=== PATIENT | male | born 1940 | race Caucasian/White ===

== ENCOUNTER 2017-02-03 21:18 | Inpatient (IN) | payer OTHER ==
[~2017-02-03] VITALS: Ht 167.6 cm; Wt 77.2 kg
[2017-02-03] MEDS ORDERED: SODIUM CHLORIDE 0.9% 1000ML 1,000 ML IV STA ×2 (21:39→23:43)
[2017-02-03] MEDS ORDERED: ACETAMINOPHEN 500 MG TAB PO STA (21:39)
[2017-02-03] MEDS ORDERED: CICL160A PO (21:54)
[2017-02-03] MEDS ORDERED: TRMCR130WC TOP (21:54)
[2017-02-03] MEDS ORDERED: NORT25CA PO (21:54)
[2017-02-03] MEDS ORDERED: LEVO50TA6 PO (21:54)
[2017-02-03] MEDS ORDERED: VNTHFA/IN INH (21:54)
[2017-02-03] MEDS ORDERED: PRLSR20 PO (21:54)
[2017-02-03 21:55] LABS: BASO % 0.1 %; BASO ABS # 0.02 K/uL (0-0.2); COMPLETE YES; EOS % 0.1 %; HEMATOCRIT 35.5 % (42-52); IG% 0.4 %; LYMPH % 6.8 %; LYMPH ABS # 0.95 K/uL (1.2-3.4); MEAN CORPUSCULAR HEMOGLOBIN 31.8 pg (25-34); MEAN CORPUSCULAR HGB CONC 34.9 g/dl (32-36); MEAN PLATELET VOLUME 8.3 fL (7.4-10.4); MONO % 6.9 %; NEUT % 85.7 %; PLATELET COUNT 290 K/uL (130-400); WHITE BLOOD COUNT 14.06 K/uL (4.8-10.8)
[2017-02-03] MEDS ORDERED: CEFTRIAXONE SOD INJ 1 GM ADDVIAL IV STA (22:04)
[2017-02-03 22:15] LABS: BUN/CREATININE RATIO 16.2 (10-20); CALCIUM 8.5 mg/dl (8.5-10.1); CREATININE 0.92 mg/dl (0.60-1.40); POTASSIUM 3.8 mmol/L (3.5-5.1)
[2017-02-03] MEDS ORDERED: AZITHROMYCIN IV 500 MG in DEXTROSE 5% 250ML 250 ML IV ONE (22:15)
[2017-02-03 22:18] LABS: ALB/GLOB RATIO 0.7 (0.9-2)
--- NOTE | 2017-02-03 22:22 | DIAGNOSTIC IMAGING REPORT ---
CHEST ONE VIEW PORTABLE HISTORY: 76 years-old Male acute shortness of breath COMPARISON: None available TECHNIQUE: Portable upright AP view of the chest FINDINGS: The patient is slightly rotated to the left. Surgical clips are seen within the region of the left hilum. There is complete opacification of left hemithorax with leftward mediastinal shift and left hemidiaphragmatic elevation. The cardiac silhouette is obscured. There is compensatory hyperinflation of the right lung which appears clear without pneumothorax, pleural effusion or focal airspace consolidation. Moderate degenerative changes are seen involving the shoulders and spine. Upper abdominal structures are within normal limits. IMPRESSION: 1. No acute process of the right lung. 2. Surgical clips of the left hilum with complete opacification and volume loss of the left hemithorax suggest prior pneumonectomy. Correlate with surgical history. The above report was generated using voice recognition software. It may contain grammatical, syntax or spelling errors. Electronically signed by: Tung Koenig M.D. 02/03/2017 10:21 PM Dictated Date/Time: 02/03/2017 10:18 PM
--- NOTE | 2017-02-03 22:26 | EMERGENCY ROOM VISIT NOTE ---
History Report prepared by Angel: Prosper Brunson Under the Supervision of: Jody SheltonO. First contact with patient: 21:27 Chief Complaint: SHORTNESS OF BREATH Stated Complaint: SOB History of Present Illness The patient is a 76 year old male who presents to the Emergency Room with complaints of persistent shortness of breath beginning a few days ago. He states "I think I have pneumonia". He also complains of a productive cough and fever. The patient denies any vomiting or diarrhea. He states that he has been eating normally recently. He is a former smoker but quit almost 20 years ago. The patient has a history of lung cancer with a complete left sided lobectomy. Source of History: patient Onset: a few days ago Quality: other (shortness of breath) Timing: other (persistent) Associated Symptoms: + cough, No vomiting, No diarrhea Review of Systems See HPI for pertinent positives and negatives. A total of ten systems were reviewed and were otherwise negative. Past Medical & Surgical Medical Problems: (1) Lung cancer Surgical Problems: (1) S/P lobectomy of lung Family History No pertinent family history stated. Social History Housing Status: other (incarcerated) Occupation Status: other (incarcerated) Current/Historical Medications Scheduled Albuterol Hfa (Ventolin Hfa), 2-4 PUFFS INH Q6H Ciclesonide (Alvesco), 1 PUFF PO BID Levothyroxine Sodium (Levothyroxine Sodium), 50 MCG PO DAILY Nortriptyline (Pamelor), 25 MG PO BID Omeprazole (Prilosec), 20 MG PO BID Scheduled PRN Triamcinolone Acet (Aristocort 0.1%), 1 DOSE TOP BID PRN for PRN Allergies Coded Allergies: No Known Allergies (Unverified , 02/03/17) Physical Exam Vital Signs Date Time Temp Pulse Resp B/P (MAP) Pulse Ox O2 Delivery O2 Flow Rate FiO2 02/03/17 22:01 Nasal Cannula 2.0 02/03/17 22:01 Nasal Cannula 3.0 02/03/17 21:55 Room Air 02/03/17 21:55 39.2 120 24 132/76 95 Nasal Cannula 3.0 02/03/17 21:29 122 Physical Exam GENERAL: Awake, alert, well-appearing, in no distress HENT: Normocephalic, atraumatic. Oropharynx unremarkable. EYES: Normal conjunctiva. Sclera non-icteric. NECK: Supple. No nuchal rigidity. FROM. No JVD. RESPIRATORY: Rhonchi bilaterally. CARDIAC: Tachycardic rate, normal rhythm. Extremities warm and well perfused. Pulses equal. ABDOMEN: Soft, non-distended. No tenderness to palpation. No rebound or guarding. No masses. RECTAL: Deferred. MUSCULOSKELETAL: Chest examination reveals no tenderness. The back is symmetrical on inspection without obvious abnormality. There is no CVA tenderness to palpation. No joint edema. LOWER EXTREMITIES: Calves are equal size bilaterally and non-tender. No edema. No discoloration. NEURO: Normal sensorium. No sensory or motor deficits noted. SKIN: No rash or jaundice noted. Medical Decision & Procedures ER Provider Diagnostic Interpretation: X-ray: Per my interpretation, radiologist review. CHEST ONE VIEW PORTABLE FINDINGS: The patient is slightly rotated to the left. Surgical clips are seen within the region of the left hilum. There is complete opacification of left hemithorax with leftward mediastinal shift and left hemidiaphragmatic elevation. The cardiac silhouette is obscured. There is compensatory hyperinflation of the right lung which appears clear without pneumothorax, pleural effusion or focal airspace consolidation. Moderate degenerative changes are seen involving the shoulders and spine. Upper abdominal structures are within normal limits. IMPRESSION: 1. No acute process of the right lung. 2. Surgical clips of the left hilum with complete opacification and volume loss of the left hemithorax suggest prior pneumonectomy. Correlate with surgical history. The above report was generated using voice recognition software. It may contain grammatical, syntax or spelling errors. Electronically signed by: Tung Koenig M.D. Laboratory Results 02/03/17 21:46 Red Blood Count 3.90, Mean Corpuscular Volume 91.0, Mean Corpuscular Hemoglobin 31.8, Mean Corpuscular Hemoglobin Concent 34.9, Mean Platelet Volume 8.3, Neutrophils (%) (Auto) 85.7, Lymphocytes (%) (Auto) 6.8, Monocytes (%) (Auto) 6.9, Eosinophils (%) (Auto) 0.1, Basophils (%) (Auto) 0.1, Neutrophils # (Auto) 12.04, Lymphocytes # (Auto) 0.95, Monocytes # (Auto) 0.97, Eosinophils # (Auto) 0.02, Basophils # (Auto) 0.02 02/03/17 21:46 Test 02/03/17 21:46 02/03/17 21:50 White Blood Count 14.06 K/uL (4.8-10.8) Red Blood Count 3.90 M/uL (4.7-6.1) Hemoglobin 12.4 g/dL (14.0-18.0) Hematocrit 35.5 % (42-52) Mean Corpuscular Volume 91.0 fL (80-100) Mean Corpuscular Hemoglobin 31.8 pg (25-34) Mean Corpuscular Hemoglobin Concent 34.9 g/dl (32-36) Platelet Count 290 K/uL (130-400) Mean Platelet Volume 8.3 fL (7.4-10.4) Neutrophils (%) (Auto) 85.7 % Lymphocytes (%) (Auto) 6.8 % Monocytes (%) (Auto) 6.9 % Eosinophils (%) (Auto) 0.1 % Basophils (%) (Auto) 0.1 % Neutrophils # (Auto) 12.04 K/uL (1.4-6.5) Lymphocytes # (Auto) 0.95 K/uL (1.2-3.4) Monocytes # (Auto) 0.97 K/uL (0.11-0.59) Eosinophils # (Auto) 0.02 K/uL (0-0.5) Basophils # (Auto) 0.02 K/uL (0-0.2) RDW Standard Deviation 42.6 fL (36.4-46.3) RDW Coefficient of Variation 12.7 % (11.5-14.5) Immature Granulocyte % (Auto) 0.4 % Immature Granulocyte # (Auto) 0.06 K/uL (0.00-0.02) Anion Gap 5.0 mmol/L (3-11) Est Creatinine Clear Calc Drug Dose 67.8 ml/min Estimated GFR () 93.3 Estimated GFR (Non- 80.5 BUN/Creatinine Ratio 16.2 (10-20) Calcium Level 8.5 mg/dl (8.5-10.1) Total Bilirubin 0.5 mg/dl (0.2-1) Aspartate Amino Transf (AST/SGOT) 13 U/L (15-37) Alanine Aminotransferase (ALT/SGPT) 21 U/L (12-78) Alkaline Phosphatase 60 U/L (45-117) Total Protein 8.0 gm/dl (6.4-8.2) Albumin 3.4 gm/dl (3.4-5.0) Globulin 4.6 gm/dl (2.5-4.0) Albumin/Globulin Ratio 0.7 (0.9-2) Bedside Lactic Acid Venous 1.01 mmol/L (0.90-1.70) Laboratory results reviewed by me Medications Administered Medications (Trade) Dose Ordered Sig/Leonardo Route Start Time Stop Time Status Last Admin Dose Admin Sodium Chloride 1,000 ml @ 999 mls/hr Q1H1M STAT IV 02/03/17 21:39 02/03/17 22:39 02/03/17 22:14 999 MLS/HR Acetaminophen (Tylenol Tab) 1,000 mg NOW STAT PO 02/03/17 21:39 02/03/17 21:42 DC 02/03/17 22:14 1,000 MG Ceftriaxone Sodium (Rocephin Inj) 1 gm NOW STAT IV 02/03/17 22:04 02/03/17 22:05 DC 02/03/17 22:14 1 GM ECG Indication: SOB/dyspnea Rate (beats per minute): 124 Rhythm: sinus tachycardia Findings: other (incomplete RBBB. Non-specific ST change. LAD. ) ED Course 2132: The patient was evaluated in room A4B. A complete history and physical exam was performed. 2138: Ordered Tylenol tab 1000 mg PO, Sodium Chloride 1000 ml @ 999 mls/hr IV. 4: Ordered Rocephin Inj 1 gm IV. 5: Ordered Azithromycin 500 mg/Dextrose 255 mL @ 125 mL/hr IV. 2221: Upon reexamination, the patient was resting. I discussed the test results and treatment plan with him. The patient will be evaluated for further management. Patient was given Tylenol, IV Rocephin and IV Zithromax, IV fluids. Patient has a normal lactic acid and elevated white blood cell count and symptoms suggestive of pneumonia. Patient is not in septic shock at 2230. The case is discussed with the hospitalist for admission Medical Decision Differential diagnosis: Etiologies such as infections, reactive airway disease, pneumonia, pneumothorax , COPD, CHF, cardiac ischemia, pulmonary embolism, musculoskeletal, gastrointestinal, as well as others were entertained. Consults Time Called: 2218 Consulting Physician: Dr. Hollins -[facility] [place] Returned Call: 2220 Discussed the patient's case. The patient will be evaluated for further treatment and disposition. Impression Primary Impression: Pneumonia Additional Impression: Hypoxia Scribe Attestation The scribe's documentation has been prepared under my direction and personally reviewed by me in its entirety. I confirm that the note above accurately reflects all work, treatment, procedures, and medical decision making performed by me. Departure Information Dispostion Being Evaluated By Hospitalist Patient Instructions My [facility] Problem Qualifiers
[2017-02-03] MEDS ORDERED: BUDESONIDE/FORMOTEROL FUMARATE 160/4.5 60 PUFFS/INHALER INH ONE (23:56)
[2017-02-03] MEDS ORDERED: ALBUT/IPRATROP 3MG/0.5MG NEB 3 ML VIAL INH STA (23:56)
[2017-02-04] VITALS (8 sets, daily range): BP systolic 129–164; BP diastolic 67–77; PULSE 85–120; TEMP 36.6–37.1; O2SAT 90–97; Ht 167.6 cm; Wt 77.2 kg
[2017-02-04] MEDS ORDERED: ONDANSETRON INJ 2 MG/ML 2 ML VIAL IV PRN
[2017-02-04] MEDS ORDERED: ACETAMINOPHEN 325 MG TAB PO PRN
[2017-02-04] MEDS ORDERED: METHYLPREDNISOLONE IV 60 MG in SYRINGE 0 ML IV STA (00:14)
[2017-02-04] MEDS ORDERED: SODIUM CHLORIDE 0.9% 1000ML 1,000 ML IV STA (00:33)
[2017-02-04 00:58] LABS: INR 0.9 (0.9-1.1); PROTHROMBIN TIME (PATIENT) 10.1 SECONDS (9.0-12.0)
[2017-02-04] MEDS ORDERED: LEVOFLOXACIN / D5W 750 MG in PREMIXED IN D5W 150 ML IV SCH (01:00)
[2017-02-04 02:20] LABS: URINE APPEARANCE CLEAR (CLEAR); URINE BILIRUBIN NEG (NEG); URINE COLOR YELLOW; URINE NITRITE NEG (NEG); URINE PH 7.5 (4.5-7.5); URINE SPECIFIC GRAVITY 1.012 (1.000-1.030); UROBILINOGEN NEG (NEG)
[2017-02-04 02:26] LABS: MANUAL MICROSCOPIC REQUIRED? NO; REVIEW REQ? NO
[2017-02-04] MEDS: SIMETHICONE 80 MG CHEW PO SCH ×2 (05:46→12:22)
[2017-02-04] MEDS ORDERED: LEVOTHYROXINE 50 MCG TAB PO SCH (06:30)
[2017-02-04] MEDS: ALBUT/IPRATROP 3MG/0.5MG NEB 3 ML VIAL INH SCH ×3 (07:11→15:34)
[2017-02-04 07:21] LABS: HEMATOCRIT 32.3 % (42-52); MEAN CELL VOLUME 91.8 fL (80-100); MEAN CORPUSCULAR HEMOGLOBIN 31.3 pg (25-34); MEAN CORPUSCULAR HGB CONC 34.1 g/dl (32-36); MEAN PLATELET VOLUME 8.3 fL (7.4-10.4); PLATELET COUNT 263 K/uL (130-400); RED BLOOD COUNT 3.52 M/uL (4.7-6.1); WHITE BLOOD COUNT 14.35 K/uL (4.8-10.8)
[2017-02-04 07:55] LABS: BUN/CREATININE RATIO 13.7 (10-20); CALCIUM 8.4 mg/dl (8.5-10.1); CREATININE 0.75 mg/dl (0.60-1.40); POTASSIUM 3.9 mmol/L (3.5-5.1)
[2017-02-04] MEDS ORDERED: PANTOprazole SOD 40 MG TAB PO SCH (08:00)
[2017-02-04] MEDS ORDERED: METHYLPREDNISOLONE IV 40 MG in SYRINGE 0 ML IV SCH (08:00)
[2017-02-04] MEDS ORDERED: BUDESONIDE/FORMOTEROL FUMARATE 160/4.5 60 PUFFS/INHALER INH SCH (08:00)
[2017-02-04] MEDS ORDERED: TRIAMCINOLONE ACET 0.1% CR 15 GM TUBE EXT SCH (08:00)
[2017-02-04] MEDS ORDERED: ENOXAPARIN 40 MG/0.4 ML SYR SQ SCH (08:00)
[2017-02-04] MEDS ORDERED: NORTRIPTYLINE HCL 25 MG CAP PO SCH (08:00)
[2017-02-04] MEDS ORDERED: TIOTROPIUM BROMIDE 5 PUFF/90 MCG INH INH SCH (08:00)
[2017-02-04] MEDS ORDERED: LEVO750T23 PO (14:21)
--- NOTE | 2017-02-04 14:23 | Discharge Instructions ---
Discharge Instructions Date of Service Feb 04, 2017. Admission Reason for Admission: Pneumonia, S/P Lobectomy Of Lung, Sepsis Discharge Discharge Diagnosis / Problem: Sepsis, pneumonia Discharge Goals Goal(s): Decrease discomfort, Improve function, Increase independence, Improve disease control, Diagnostic testing, Therapeutic intervention Activity Recommendations Activity Limitations: resume your previous activity Shower/Bathe: no limitations . Instructions / Follow-Up Instructions / Follow-Up Patient to be discharged home Likely having atypical pneumonia Can be discharged back to correctional facility on antibiotic levaquin 750 mg by mouth once daily If worsening fevers, shortness of breath please report back to ER Current Hospital Diet Patient's current hospital diet: Regular Diet Discharge Diet Recommended Diet: Regular Diet Pending Studies Studies pending at discharge: no Medical Emergencies . Who to Call and When: Medical Emergencies: If at any time you feel your situation is an emergency, please call 911 immediately. . Non-Emergent Contact Non-Emergency issues call your: Primary Care Provider Call Non-Emergent contact if: you have a fever, your pain is worsening . . "Provider Documentation" section prepared by Mendoza Coronado. . VTE Core Measure Inpt VTE Proph given/why not?: Enoxaparin (Lovenox)SQ
--- NOTE | 2017-02-04 16:39 | Discharge Summary ---
Discharge Summary Date of Service Feb 04, 2017. Discharge Summary Admission Date: Feb 04, 2017 at 00:06 Discharge Date: Feb 04, 2017 Discharge Disposition: Acute care facility Principal Diagnosis: pneumonia, hx of lung cancer with lobectomy Medication Reconciliation New Medications: Levofloxacin (Levaquin) 750 Mg Tab 1 TAB PO DAILY for 7 Days, #7 TAB Continued Medications: Albuterol Hfa (Ventolin Hfa) 200 Puffs/88226 Mcg Aers 2-4 PUFFS INH Q6H, #1 INHALER Ciclesonide (Alvesco) 160 Mcg/Act Aer 1 PUFF PO BID Levothyroxine Sodium (Levothyroxine Sodium) 50 Mcg Tab 50 MCG PO DAILY, TAB 3 Refills Nortriptyline (Pamelor) 25 Mg Cap 25 MG PO BID, CAP Omeprazole (Prilosec) 20 Mg Capcr 20 MG PO BID, CAP Triamcinolone Acet (Aristocort 0.1%) 90 Appln/30 Gm Cr 1 DOSE TOP BID PRN for PRN Discharge Exam Review of Systems: Constitutional: No fever, No chills, No sweats, No weight loss, No weakness ENT: No hearing loss, No unusual epistaxis, No nasal symptoms, No sore throat Respiratory: + cough, No sputum, No wheezing, No shortness of breath, No dyspnea on exertion, No dyspnea at rest, No hemoptysis Cardiovascular: No chest pain, No orthopnea, No PND Abdomen: No pain, No nausea, No vomiting, No diarrhea Musculoskeletal: No joint pain, No muscle pain, No swelling, No calf pain Genitourinary - Male: No hematuria, No dysuria, No urinary frequency Neurologic: No memory loss, No paralysis, No weakness, No numbness/tingling Psychiatric: No depression symptoms, No anhedonism, No anxiety Endocrine: No fatigue, No excessive thirst Integumentary: No rash, No itch Physical Exam: General Appearance: WD/WN, no apparent distress Eyes: normal inspection, PERRL, EOMI, sclerae normal Neck: supple, no adenopathy, thyroid normal, no JVD Respiratory/Chest: chest non-tender, no respiratory distress, no accessory muscle use, + decreased breath sounds Cardiovascular: no edema, no gallop, no JVD, + tachycardia Abdomen / GI: normal bowel sounds, non tender, soft, no organomegaly Extremities: normal inspection, no calf tenderness, normal capillary refill , no pedal edema Neurologic/Psychiatric: alert, normal mood/affect, normal reflexes, oriented x 3 Skin: normal color, warm/dry, no rash Lymphatic: no adenopathy Hospital Course Pt is a 76 yo male with hx of lung cancer with left lower lobe lobectomy who presented to [facility] with shortness of breath for past 3 days Shortness of breath likely secondary to developing PNA with underlying sepsis Noted fever and leukocytosis on admission Improved with IV Levaquin, Rocephin and Azithromycin CXR did not determine any acute process Pt reports improvement in sx, DC back to correctional facility on levaquin 750 mg PO x 7 days COPD - Cont inhalers Hypothyroidism - Cont synthroid DVT ppx with lovenox Total Time Spent: Greater than 30 minutes This includes examination of the patient, discharge planning, medication reconciliation, and communication with other providers. Discharge Instructions Please refer to the electronic Patient Visit Report (Discharge Instructions) for additional information.
--- NOTE | 2017-02-05 15:34 | History and Physical ---
History & Physical Date & Time of Service: Feb 03, 2017 at 23:58 Chief Complaint: Pneumonia, S/P Lobectomy Of Lung, Sepsis Primary Care Physician: Kenisha VEGA History of Present Illness Source: patient Mr Camacho is a 76 year old male with a history of left lung pneumonectomy who presents with 2 days of increasing shortness of breath and fever for the past day. He was noted to be hypoxic and feverish at the [facility] and so was transferred to the ER. He has not taken antibiotics to date. He denies any chest pain. He has had a productive cough during this time with some wheezing. He denies any previous cardiac issues. Past Medical/Surgical History Medical Problems: (1) Lung cancer Status: Resolved Surgical Problems: (1) S/P lobectomy of lung Status: Chronic Family History Noncontributory Social History Smoking Status: Former Smoker Smokeless Tobacco Use: No Alcohol Use: none Drug Use: none Housing status: other (incarcerated) Occupational Status: other (incarcerated) Immunizations History of Influenza Vaccine: Yes History of Tetanus Vaccine?: Yes History of Pneumococcal: Unknown History of Hepatitis B Vaccine: Unknown Multi-Drug Resistant Organisms History of MDRO: No Allergies Coded Allergies: No Known Allergies (Unverified , 02/03/17) Home Medications Scheduled Albuterol Hfa (Ventolin Hfa), 2-4 PUFFS INH Q6H Ciclesonide (Alvesco), 1 PUFF PO BID Levofloxacin (Levaquin), 1 TAB PO DAILY Levothyroxine Sodium (Levothyroxine Sodium), 50 MCG PO DAILY Nortriptyline (Pamelor), 25 MG PO BID Omeprazole (Prilosec), 20 MG PO BID Scheduled PRN Triamcinolone Acet (Aristocort 0.1%), 1 DOSE TOP BID PRN for PRN Review of Systems Constitutional: + fever, + chills, No weight loss Eyes: No worsening of vision ENT: No hearing loss Respiratory: + cough, + sputum, + wheezing, + shortness of breath Cardiovascular: No chest pain, No orthopnea, No PND, No edema, No claudication , No palpitations Abdomen: No pain, No nausea, No vomiting, No diarrhea, No constipation, No GI bleeding Musculoskeletal: No joint pain, No muscle pain Genitourinary - Male: No hematuria, No dysuria, No urinary frequency Hematologic / Lymphatic: No abnormal bleeding/bruising Integumentary: No rash, No itch Physical Exam Vital Signs Date Time Temp Pulse Resp B/P (MAP) Pulse Ox O2 Delivery O2 Flow Rate FiO2 02/04/17 15:34 120 26 90 Room Air General Appearance: WD/WN, no apparent distress Head: normocephalic, atraumatic Eyes: normal inspection Neck: supple, no adenopathy, no JVD Respiratory/Chest: chest non-tender, no respiratory distress, no accessory muscle use, + crackles (bilaterally R>L) Cardiovascular: regular rate, rhythm, no edema, no murmur, normal peripheral pulses Abdomen/GI: normal bowel sounds, non tender, soft, + distended Back: no CVA tenderness Extremities/Musculoskelatal: no calf tenderness, normal capillary refill, no pedal edema Neurologic/Psych: no motor/sensory deficits, alert, oriented x 3 Skin: normal color, warm/dry, no rash Diagnostics Diagnostic Radiology CHEST ONE VIEW PORTABLE HISTORY: 76 years-old Male acute shortness of breath COMPARISON: None available TECHNIQUE: Portable upright AP view of the chest FINDINGS: The patient is slightly rotated to the left. Surgical clips are seen within the region of the left hilum. There is complete opacification of left hemithorax with leftward mediastinal shift and left hemidiaphragmatic elevation. The cardiac silhouette is obscured. There is compensatory hyperinflation of the right lung which appears clear without pneumothorax, pleural effusion or focal airspace consolidation. Moderate degenerative changes are seen involving the shoulders and spine. Upper abdominal structures are within normal limits. IMPRESSION: 1. No acute process of the right lung. 2. Surgical clips of the left hilum with complete opacification and volume loss of the left hemithorax suggest prior pneumonectomy. Correlate with surgical history. The above report was generated using voice recognition software. It may contain grammatical, syntax or spelling errors. Electronically signed by: Tung Koenig M.D. 02/03/2017 10:21 PM Dictated Date/Time: 02/03/2017 10:18 PM EKG Sinus tachycardia, 124 bpm Left axis deviation Left anterior fascicular block Impression Assessment and Plan 76 year old male with history of lung ca. s/p left pneumonectomy presents with cough and fever Sepsis (temp, elevated WBC and tachycardia) with pneumonia - no consolidation on CXR but may be in early stages - blood cultures pending - treat with IV levaquin - IVF (aim 30ml/hg in first 3 hours) - lactic acid 1.01 COPD with current exacerbation - switch ciclesonide to fluticason INH as per formulary - treat as exacerbation with IV methylprednisone and duonebs given slight wheezing on examination - start spiriva - he previously had this at home. - recommend follow up with lung function testing Hypothyroidism - continue levothyroxine GERD - switch omeprazole to pantoprazole as per hospital formulary Attending Addendum: I have physically seen and examined this patient, have supervised the medical residents activities, and agree with the H&P as noted above with the following exceptions: NONE The patient is awake, alert and oriented 3, normocephalic and atraumatic, lying in bed and in mild acute respiratory distress. HEENT--PERRL, EOMI, mucous membranes and oropharynx dry. Neck--supple, no JVD or bruits, thyroid normal, trachea midline, no adenopathy. Heart--normal S1 and S2, no extra beats, no murmurs, rubs or gallops. Lungs--coarse breath sounds and wheezes bilaterally, mild respiratory distress, no accessory muscle use. Abdomen--normal bowel sounds and soft, nontender and nondistended. Extremities--no cyanosis, clubbing or edema. There are good distal pulses b/l. Dermatologic--normal skin turgor, normal color, warm and dry, no abnormal lymph nodes, no rash. Neurologic--cranial nerves II through XII grossly intact. Rheumatologic--normal range of motion, nontender, muscles and joints. Psychiatric--normal affect. Assessment and Plan: 1. Lung cancer/status post left pneumonectomy/presumptive pneumosepsis-- admitted to medical surgical floor. Start Levaquin 750 mg IV daily. IV fluid rehydration with serial BMP and magnesium levels. Initial Solu-Medrol 125 mg IV, then 60 mg IV every 6 hours. Continue Spiriva. Do nebs every 6 hours while awake and every 2 hours when necessary. 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 Y/N: Yes Risk Level: Moderate Given or contraindicated: Enoxaparin (Lovenox)SQ Additional Copies To Kenisha VEGA Resident Tracking Resident Involvement: Resident Care Provided Care Provided: Adult Hospital Medicine
--- NOTE | 2017-02-06 17:10 | EDITING REQUIRED CODING QUERY ---
CODING QUERY To promote full compliance with coding requirements relating to patient care, provider participation is requested in all cases of clinical coder uncertainty. Please assist us with the question(s) below: Coding Question(s): Dr. Coronado, COPD exacerbation is documented in the H&P, but not the discharge summary. Please clarify if: (X ) COPD exacerbation was present and treated during this admission ( ) COPD exacerbation was ruled out ( ) Other, please explain Physician's Response(s): Thank you for your time, DANISHA Diggs, DIE TROUBLE SHOOTER
== END 2017-02-04 15:45 | DRG 871 ==
LOC: EDBD 21:18 → C.EDA 21:20 → C.4E 02-04 00:06 → ENRESERV 02-04 00:28
PROVIDERS: ADMIT Hospitalist; ATTEND Hospitalist
DX: A41.9 Sepsis, unspecified organism (principal); J18.9 Pneumonia, unspecified organism; J44.0 Chronic obstructive pulmonary disease with (acute) lower respiratory infection; J44.1 Chronic obstructive pulmonary disease with (acute) exacerbation; R09.02 Hypoxemia; E03.9 Hypothyroidism, unspecified; K21.9 Gastro-esophageal reflux disease without esophagitis; Z90.2 Acquired absence of lung [part of]; Z85.118 Personal history of other malignant neoplasm of bronchus and lung; Z87.891 Personal history of nicotine dependence; Z79.51 Long term (current) use of inhaled steroids; Z79.899 Other long term (current) drug therapy

== ENCOUNTER 2019-02-16 22:05 | Inpatient (IN) ==
--- NOTE | 2019-02-16 22:51 | XRay Report ---
XR chest 1V portable CLINICAL HISTORY: 78 years-old Male presenting with Chest Pain. TECHNIQUE: Portable upright AP view of the chest was obtained. COMPARISON: 02/03/2017. FINDINGS: Leftward deviation of the cardiomediastinal silhouette status post left pneumonectomy. Surgical clips project over the left hilum. Complete opacification of the left hemithorax. Hyperinflation of the ri ght lung. Prominent skin folds project over the right mid lung. No focal lung opacity. No pleural eff usion or pneumothorax. Degenerative changes of the thoracic spine. Upper abdomen normal. IMPRESSION: 1. Postsurgical changes of left pneumonectomy, chronic and unchanged. No convincing evidence of acut e cardiopulmonary disease. Electronically signed by: Will Connor M.D. 02/16/2019 10:38 PM
[2019-02-16 22:59] LABS: Basophils # (auto) 0.04 K/uL (0-0.2); Basophils % (auto) 0.6 %; Eosinophils # (auto) 0.05 K/uL (0-0.5); Eosinophils % (auto) 0.7 %; Hematocrit (blood only) 22.1 % (42-52); Hemoglobin 7.2 g/dL (14.0-18.0); Immature Granulocytes % (auto) 2.8 %; Lymphocytes # (auto) 1.56 K/uL (1.2-3.4); Lymphocytes % (auto) 22.1 %; Mean Corpuscular Hgb Conc 32.6 g/dL (32-36); Mean Corpuscular Volume 97.8 fL (80-100); Mean Platelet Volume 8.2 fL (7.4-10.4); Monocytes # (auto) 0.89 K/uL (0.11-0.59); Monocytes % (auto) 12.6 %; Neutrophils # (auto) 4.32 K/uL (1.4-6.5); Neutrophils % (auto) 61.2 %; Nucleated RBC # (auto) 0.03 K/uL (0-0); Nucleated RBC % (auto) 0.4 %; Platelet Count 371 K/uL (130-400); RDW Coefficient of Variation 14.7 % (11.5-14.5); Red Blood Count 2.26 M/uL (4.7-6.1); White Blood Count 7.06 K/uL (4.8-10.8)
[2019-02-16 23:18] LABS: D Dimer 3210 ug/L FEU (0-500)
[2019-02-16 23:25] LABS: RBC Morphology Unremarkable
[2019-02-16 23:38] LABS: Alanine Aminotransferase 20 U/L (12-78); Albumin Globulin Ratio 0.4 (0.9-2); Albumin Level 2.7 gm/dl (3.4-5.0); Alkaline Phosphatase 76 U/L (45-117); BUN Creatinine Ratio 22.6 (10-20); Bilirubin,Total 0.3 mg/dl (0.2-1); Blood Urea Nitrogen 21 mg/dl (7-18); Calcium 8.7 mg/dl (8.5-10.1); Carbon Dioxide 28 mmol/L (21-32); Chloride 101 mmol/L (98-107); Creatinine Clr Calc Pharmacy 58.4 ml/min; Est GFR (African American) 89.6; Est GFR (Non-African American) 77.3; Globulin 6.9 gm/dl (2.5-4.0); Glucose 94 mg/dl (70-99); Sodium 133 mmol/L (136-145); Total Protein 9.6 gm/dl (6.4-8.2); Troponin I < 0.015 ng/ml (0-0.045)
--- NOTE | 2019-02-16 23:43 | Ultrasound Report ---
ULTRASOUND LEFT LOWER EXTREMITY VENOUS CLINICAL HISTORY: Left leg pain. Recent fall. COMPARISON STUDY: No priors. TECHNIQUE: Real-time, grayscale, and color Doppler sonography of the deep veins of the left lower ext remity was performed from the inguinal crease to the calf. Compression and augmentation were utilized . FINDINGS: There is no sonographic evidence of deep venous thrombosis identified in the left lower ext remity. The common femoral, superficial femoral, and popliteal veins are patent and normally compress ible. The greater saphenous vein and the profunda femoris vein at the junction with the common femora l vein are clear. The visualized calf veins are patent. IMPRESSION: There is no sonographic evidence of deep venous thrombosis identified in the left lower e xtremity. Electronically signed by: Robert Santos M.D. 02/16/2019 11:40 PM
[2019-02-17] MEDS ORDERED: OPTIRAY 320 125ml IV PRN (00:33)
--- NOTE | 2019-02-17 00:57 | CT Scan Report ---
CT ANGIOGRAM OF THE CHEST CLINICAL HISTORY: Dyspnea. COMPARISON STUDY: Chest x-ray dated 02/16/2019. TECHNIQUE: Following the IV administration of 94 cc of Optiray 320, CT angiogram of the chest was per formed from the upper abdomen to the thoracic inlet utilizing the pulmonary embolus protocol. Images are reviewed in the axial, sagittal, and coronal planes. 3-D MIPS images are created and assessed. IV contrast was administered without complication. A dose lowering technique was utilized adhering to the principles of ALARA. The examination is degraded by streak artifact from the arms which could not elevated above the chest. CT DOSE: 441.43 mGy.cm FINDINGS: Thyroid: Not visualized. Thoracic aorta: There is atherosclerotic calcification of the thoracic aorta, with is normal in calib er and demonstrates standard 3-vessel arch anatomy. No dissection is seen. Pulmonary vasculature: The pulmonary trunk is normal in caliber. There are no filling defects identif ied in main, lobar, or segmental pulmonary branches to suggest pulmonary embolus. Heart: The heart is enlarged and without pericardial effusion. Lungs and pleural spaces: There is postoperative change consistent with left pneumonectomy. There is compensatory hyperinflation of the right lung and leftward shift of the mediastinum. Advanced emphyse matous changes noted in the right lung. Patchy airspace consolidation is seen at the right lung base. No pleural effusion is identified. Secretions are noted in the distal trachea. A calcified granuloma is noted in the right middle lobe. No concerning pulmonary lesion is seen in the right lung. Mediastinum: As noted above there is leftward shift of mediastinum. No mediastinal adenopathy is seen . Flor: Clear. Axillae: There is no axillary lymphadenopathy. Upper abdomen: Partially visualized upper abdominal viscera is within normal limits. Skeletal structures: The skeletal structures are heterogeneously osteopenic. 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 Lesions are seen throughout the thoracic spine, involving both ribs, both scapulae, right humerus, and the sternum. A large osteolytic lesion is seen in the body o f T3. Tumor extends posteriorly and encroaches upon the anterior aspect of the thecal sac. The lesion Involves the left pedicle and transverse process of T3, and there is a moderate pathologic compressi on deformity of the T3 vertebral body. There is a large osteolytic lesion in the anterior body of T9. There are pathologic fractures of the right lateral 4th, 6th, 7th, 8th, and 9th ribs. There are also pathologic fractures of the left 3rd, 4th, and 8th ribs. IMPRESSION: 1. There is no evidence of pulmonary embolus in the main, lobar, or segmental pulmonary arteries. 2. Cardiomegaly, advanced emphysema, and postoperative change from left pneumonectomy. 3. There is patchy/nodular airspace consolidation at the right lung base. Correlate clinically for ev idence of a mild infectious/inflammatory pneumonitis. 4. 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 5. There are numerous pathological rib fractures seen bilaterally, as well as a pathologic compressio n fracture of T3. 6. There is metastatic soft tissue from the T3 lesion which encroaches upon the thecal sac. 7. Additional findings as above. Electronically signed by: Robert Santos M.D. 02/17/2019 12:54 AM
[2019-02-17] MEDS ORDERED: SODIUM CHLORIDE 0.9% 250 ML IV PRN ×2 (01:13→04:48)
[2019-02-17] MEDS ORDERED: MoRPHine SULFATE 2 MG/ML CARP IV STA (01:13)
--- NOTE | 2019-02-17 01:23 | Emergency Department Note ---
Entered by Micah Cotton acting as a scribe for Cordell Lewis MD History of Present Illness General Chief complaint: Shortness of Breath/Dyspnea Time Seen by Provider: 02/16/19 22:14 Source: patient History of Present Illness Onset (ago): hour(s) (earlier today) Location: chest Pain Consistency: + intermittent Quality: + dull Associated symptoms: + denies other symptoms (vomiting, pain while breathing, trauma to the chest); no cough The patient is a 78 y/o male who presents to the ED w/ CC of intermittent, dull, chest pain beginning earlier today. The patient states he was attempting to tie his shoes earlier when he suddenly became lightheaded and nauseous and developed chest pain. He reports he does not know which happened first, and he was short of breath with his chest pain. The patient notes his chest pain is intermittent and dull, and it does not radiate. He states he fell twice over the past two months. The patient reports the first time he fell about 4 inches but heard a crunch in his right side when he fell. He notes he can still hear this crunch when he moves a certain way in his wheelchair. The patient states he then fell a few weeks later on his left side and now has left groin pain. He reports he had x-rays of the hip that were normal, and he is scheduled to have x-rays of the leg and back on Tuesday. The patient notes he also has a history of lung cancer and had a left upper and lower lobectomy. He states he takes inhalers daily, but he does not normally use oxygen. The patient denies vomiting, pain while breat isaías, trauma to the chest, recent cough, and taking blood thinners. He also denies a history of these symptoms, NH, heart trouble, and kidney issues. Home Medications Home Medications Medication Instructions Recorded Confirmed Type acetaminophen [Tylenol Extra 1,000 mg PO QID PRN 02/16/19 02/16/19 History Strength] albuterol sulfate 2 puff INHALATION TID 02/16/19 02/16/19 History ciclesonide [Alvesco] 1 puff INHALATION BID 02/16/19 02/16/19 History ibuprofen 400 mg PO TID 02/16/19 02/16/19 History levothyroxine 50 mcg PO DAILY 02/16/19 02/16/19 History nortriptyline 25 mg PO BID 02/16/19 02/16/19 History Allergies Allergy/AdvReac Type Severity Reaction Status Date / Time No Known Allergies Allergy Unverified 02/16/19 22:59 Past Med/Surg History Medical History Lung cancer (Resolved) Sepsis (Resolved) Surgical History S/P lobectomy of lung (Chronic) Family History Other Family history non-contributory Social History Feels Safe at Home: Yes Smoking Status: Former smoker Review of Systems See HPI for pertinent positives & negatives. and A total of 10 systems reviewed and were otherwise negative Physical Exam Vital Signs Vital Signs - 24 hr 02/16/19 22:24 02/16/19 22:48 02/16/19 23:48 Temperature 37.0 C Temperature Source Oral Sepsis Recent Fever Within 48 Hours No Sepsis New/Unexplained Change in Mental Status No Sepsis Action Taken by Nursing No Action Required Pulse Rate 102 H Pulse Rate [Right Finger] 97 H Pulse Rhythm Regular Pulse Rhythm [Right Finger] Pulse Strength Normal Pulse Strength [Right Finger] Respiratory Rate 20 18 Respiratory Effort / Characteristics Non-Labored Non-Labored Respiratory Depth Normal Normal Respiratory Pattern Regular Regular Blood Pressure 174/74 H Blood Pressure [Right Arm] 146/89 H Blood Pressure Mean 107 Blood Pressure Mean [Right Arm] 108 Blood Pressure Position Lying Blood Pressure Position [Right Arm] Lying Pulse Oximetry 89 L Oxygen Delivery Method Room Air Nasal Cannula Oxygen Flow Rate 2 2 02/17/19 01:00 Temperature Temperature Source Sepsis Recent Fever Within 48 Hours Sepsis New/Unexplained Change in Mental Status Sepsis Action Taken by Nursing Pulse Rate Pulse Rate [Right Finger] 84 Pulse Rhythm Pulse Rhythm [Right Finger] Regular Pulse Strength Pulse Strength [Right Finger] Normal Respiratory Rate 18 Respiratory Effort / Characteristics Non-Labored Respiratory Depth Normal Respiratory Pattern Regular Blood Pressure Blood Pressure [Right Arm] 151/95 H Blood Pressure Mean Blood Pressure Mean [Right Arm] 113 Blood Pressure Position Blood Pressure Position [Right Arm] Lying Pulse Oximetry 98 Oxygen Delivery Method Nasal Cannula Oxygen Flow Rate 2 General: Chronically-ill appearing older male in no acute distress. Denies current complaints. HEENT: Normal cephalic atraumatic. Pupils are equal round and reactive to light. Extraocular movements are intact. Oropharynx is pink with moist mucous membranes. No swelling of the mouth lips or tongue. Neck: Supple with a midline trachea. No meningeal signs or stiffness, no JVD or bruits. No Stridor. Chest: Lung sounds diminished/absent on the left. Normal on the right. No wheezes or rhonchi. No increased work of breathing. Heart: regular rate and rhythm. Abdomen: Soft nontender, nondistended without rebound guarding or rigidity. Extremities: No cyanosis clubbing or edema. No calf tenderness or asymmetry. Left leg tender especially near the groin. Spine/Back. Tender to palpation on the right posterior ribs. No CVA tenderness Skin: Good turgor without rashes. Neurologic exam: Cranial nerves two through 12 are intact. Motor and sensation are intact and symmetrical throughout. Course 2213: Past medical records reviewed. The patient was evaluated in room B05. A c omplete history and physical exam was performed. 0000: I reevaluated the patient. He is doing well. I ordered a CT. 0014: The patient was found to be anemic. He denies a history of GI bleeding and a current GI bleed. 0113: Upon reevaluation, I discussed findings and results with him. He verbalize d agreement of the treatment plan. 0146: I spoke with Dr. Clay of the [facility] Hospitalist [facility]. The patient will be evaluated for further management and care. Administered Medications Sodium Chloride (Nss) 250 mls @ 15 mls/hr IV .[id number] PRN PRN Reason: For Transfusion Stop: 03/19/19 01:12 Last Admin: 02/17/19 01:19 Dose: 15 mls/hr Documented by: [id number] Ioversol (Optiray 320 125ml) 94 ml IV ONCE PRN PRN Reason: Interaction Checking Stop: 02/21/19 00:32 Last Admin: 02/17/19 00:34 Dose: 94 ml Documented by: [id number] Discontinued Medications Morphine Sulfate (Morphine Sulfate) 2 mg IV NOW STA Stop: 02/17/19 01:14 Last Admin: 02/17/19 01:18 Dose: 2 mg Documented by: [id number] Medical Decision Making Differential Diagnosis Differential diagnosis includes: ACS, arrhythmia, PE/DVT, rib fracture, pneumothorax. Medical Records Attestation: I reviewed the patient's medical records. Home Medications Current Medication List: was personally reviewed by me Laboratory Data Attestation: I reviewed the patient's lab results. Result diagrams: 02/16/19 22:46 02/16/19 22:46 Lab Results 02/16/19 02/16/19 02/16/19 Range/Units 22:46 22:46 22:46 WBC 7.06 (4.8-10.8) K/uL RBC 2.26 L (4.7-6.1) M/uL Hgb 7.2 L (14.0-18.0) g/dL Hct 22.1 L (42-52) % MCV 97.8 (80-100) fL MCH 31.9 (25-34) pg MCHC 32.6 (32-36) g/dL RDW Std Deviation 52.0 H (36.4-46.3) fL RDW Coeff of Megha 14.7 H (11.5-14.5) % Plt Count 371 (130-400) K/uL MPV 8.2 (7.4-10.4) fL Immature Gran % (Auto) 2.8 % Neut % (Auto) 61.2 % Lymph % (Auto) 22.1 % Craven % (Auto) 12.6 % Eos % (Auto) 0.7 % Baso % (Auto) 0.6 % Immature Gran # (Auto) 0.20 H (0.00-0.02) K/uL Neut # (Auto) 4.32 (1.4-6.5) K/uL Lymph # (Auto) 1.56 (1.2-3.4) K/uL Craven # (Auto) 0.89 H (0.11-0.59) K/uL Eos # (Auto) 0.05 (0-0.5) K/uL Baso # (Auto) 0.04 (0-0.2) K/uL Absolute Nucleated RBC 0.03 H (0-0) K/uL Nucleated RBC % (auto) 0.4 % RBC Morphology Unremarkable D-Dimer 3210 H* (0-500) ug/L FEU Sodium 133 L (136-145) mmol/L Potassium (3.5-5.1) mmol/L Chloride 101 (98-107) mmol/L Carbon Dioxide 28 (21-32) mmol/L Anion Gap 4.0 (3-11) BUN 21 H (7-18) mg/dl Creatinine 0.94 (0.6-1.4) mg/dl Est Cr Clr Drug Dosing 58.4 ml/min Est GFR ( Amer) 89.6 Est GFR (Non-Af Amer) 77.3 BUN/Creatinine Ratio 22.6 H (10-20) Glucose 94 (70-99) mg/dl Calcium 8.7 (8.5-10.1) mg/dl Total Bilirubin 0.3 (0.2-1) mg/dl AST (15-37) U/L ALT 20 (12-78) U/L Alkaline Phosphatase 76 (45-117) U/L Troponin I < 0.015 (0-0.045) ng/ml Total Protein 9.6 H (6.4-8.2) gm/dl Albumin 2.7 L (3.4-5.0) gm/dl Globulin 6.9 H (2.5-4.0) gm/dl Albumin/Globulin Ratio 0.4 L (0.9-2) Lipase 63 L (73-393) U/L Crossmatch 02/17/19 Range/Units 01:30 WBC (4.8-10.8) K/uL RBC (4.7-6.1) M/uL Hgb (14.0-18.0) g/dL Hct (42-52) % MCV (80-100) fL MCH (25-34) pg MCHC (32-36) g/dL RDW Std Deviation (36.4-46.3) fL RDW Coeff of Megha (11.5-14.5) % Plt Count (130-400) K/uL MPV (7.4-10.4) fL Immature Gran % (Auto) % Neut % (Auto) % Lymph % (Auto) % Craven % (Auto) % Eos % (Auto) % Baso % (Auto) % Immature Gran # (Auto) (0.00-0.02) K/uL Neut # (Auto) (1.4-6.5) K/uL Lymph # (Auto) (1.2-3.4) K/uL Craven # (Auto) (0.11-0.59) K/uL Eos # (Auto) (0-0.5) K/uL Baso # (Auto) (0-0.2) K/uL Absolute Nucleated RBC (0-0) K/uL Nucleated RBC % (auto) % RBC Morphology D-Dimer (0-500) ug/L FEU Sodium (136-145) mmol/L Potassium (3.5-5.1) mmol/L Chloride (98-107) mmol/L Carbon Dioxide (21-32) mmol/L Anion Gap (3-11) BUN (7-18) mg/dl Creatinine (0.6-1.4) mg/dl Est Cr Clr Drug Dosing ml/min Est GFR ( Amer) Est GFR (Non-Af Amer) BUN/Creatinine Ratio (10-20) Glucose (70-99) mg/dl Calcium (8.5-10.1) mg/dl Total Bilirubin (0.2-1) mg/dl AST (15-37) U/L ALT (12-78) U/L Alkaline Phosphatase (45-117) U/L Troponin I (0-0.045) ng/ml Total Protein (6.4-8.2) gm/dl Albumin (3.4-5.0) gm/dl Globulin (2.5-4.0) gm/dl Albumin/Globulin Ratio (0.9-2) Lipase (73-393) U/L Crossmatch See Detail Imaging Data Radiologist's Impression: Radiology results as stated below per my review and the radiologist's interpretation: XR chest 1V portable CLINICAL HISTORY: 78 years-old Male presenting with Chest Pain. TECHNIQUE: Portable upright AP view of the chest was obtained. COMPARISON: 02/03/2017. FINDINGS: Leftward deviation of the cardiomediastinal silhouette status post left pneumonectomy. Surgical clips project over the left hilum. Complete opacification of the left hemithorax. Hyperinflation of the right lung. Prominent skin folds project over the right mid lung. No focal lung opacity. No pleural effusion or pneumothorax. Degenerative changes of the thoracic spine. Upper abdomen normal. IMPRESSION: 1. Postsurgical changes of left pneumonectomy, chronic and unchanged. No convincing evidence of acute cardiopulmonary disease. Electronically signed by: Will Connor M.D. 02/16/2019 10:38 PM ULTRASOUND LEFT LOWER EXTREMITY VENOUS CLINICAL HISTORY: Left leg pain. Recent fall. COMPARISON STUDY: No priors. TECHNIQUE: Real-time, grayscale, and color Doppler sonography of the deep veins of the left lower extremity was performed from the inguinal crease to the calf. Compression and augmentation were utilized. FINDINGS: There is no sonographic evidence of deep venous thrombosis identified in the left lower extremity. The common femoral, superficial femoral, and popliteal veins are patent and normally compressible. The greater saphenous vein and the profunda femoris vein at the junction with the common femoral vein are clear. The visualized calf veins are patent. IMPRESSION: There is no sonographic evidence of deep venous thrombosis identified in the left lower extremity. Electronically signed by: Robert Santos M.D. 02/16/2019 11:40 PM ECG Data Attestation: I personally reviewed and interpreted this ECG as follows: Indication: SOB/dyspnea Rate (beats per minute): 106 Rhythm: sinus tachycardia Findings: + other (LVH) and + RBBB (incomplete); no acute ischemic change Comparison ECG Date: from (02/03/2017) Change: the following changes noted (LVH now present) Blood Pressure Blood Pressure Findings: Elevated blood pressure Blood Pressure Disposition: Referred to patients primary care provider Head Trauma GCS Score: 15 MDM Narrative This patient comes in as described above. He was placed in room B5. He has had chest pain and shortness of breath. He is feeling better at present he did fall couple weeks ago has had some right-sided rib pain since then. No abdominal pain. No head trauma. He feels better at present. He does have a history of lung cancer with a left pneumonectomy in the past. No recent treatment. He does have a history of COPD and uses inhalers at times. He does not feel that he needs an inhaler at present. He has been having ongoing left hip pain and leg pain. Ultrasound was obtained of his leg and there is no evidence of DVT. EKG does not suggest acute coronary syndrome or significant arrhythmia. Troponin is negative. His hemoglobin is is low at the mid 7 range and he has no history of GI bleed symptoms. I did type and cross him for 2 units for possible transfusion. He has no significant electrolyte or metabolic abnormalities. I did a CAT scan of his chest as his dimer was significant elevated and he has multiple abnormalities suggesting metastatic cancer. His multiple pathologic lesions in the ribs and spine with a bony tumor appearance in T3. He has multiple pathologic fractures of the ribs bilaterally with 5 on the right and 3 on the left. He is no left-sided tenderness at this point. He was given IV morphine for pain. Given his chest pain new diagnosis of likely metastatic cancer. I do think he needs to be admitted for further treatment evaluation and work-up and pain management. I have consulted the [facility] group to see him in the ER. Impression & Plan Chest pain, Multiple fractures of ribs, Metastatic cancer, Pathologic compression fracture of spine, Anemia, S/P lobectomy of lung Discharge Plan Visit Data Chief Complaint: Shortness of Breath/Dyspnea ED Provider: Cordell Lewis Discharge Problem: Chest pain, Multiple fractures of ribs, Metastatic cancer, Pathologic compression fracture of spine, Anemia, S/P lobectomy of lung Patient Disposition: Home - Self-Care Forms Stand Alone Forms: My [facility], Important Visit Information Prescriptions Prescriptions: No Action acetaminophen [Tylenol Extra Strength] 500 mg Tablet 1,000 mg PO QID PRN (Reason: Pain) RF: 0 nortriptyline 25 mg Capsule 25 mg PO BID RF: 0 levothyroxine 50 mcg Tablet 50 mcg PO DAILY RF: 0 ibuprofen 400 mg Tablet 400 mg PO TID RF: 0 albuterol sulfate 90 mcg/actuation Hfa Aerosol Inhaler 2 puff INHALATION TID RF: 0 Alvesco 160 mcg/actuation Hfa Aerosol Inhaler 1 puff INHALATION BID RF: 0 Referrals Referrals: Kenisha VEGA [Primary Care Provider] - The scribe's documentation has been prepared under my direction and personally reviewed by me in its entirety. I confirm that the note above accurately reflects all work, treatment, procedures, and medical decision making performed by me.
[2019-02-17 02:57] LABS: Partial Thromboplastin Ratio 0.9; Partial Thromboplastin Time 23.7 Seconds (21.0-31.0); Prothrombin Time 10.5 Seconds (9.0-12.0)
[2019-02-17] MEDS ORDERED: SODIUM CHLORIDE 0.9% 1000ML 1,000 ML IV SCH (03:27)
[2019-02-17] MEDS ORDERED: ONDANSETRON INJ 2 MG/ML 2 ML VIAL IV PRN (03:27)
[2019-02-17 04:14] LABS: Hemoglobin 6.8 g/dL (14.0-18.0)
--- NOTE | 2019-02-17 05:04 | History & Physical Report ---
Date of Service February 17, 2019 Assessment & Plan (1) Lung cancer: Lung cancer status post left pneumonectomy 20 years ago. Multiple bilateral pathologic rib fractures. Pathologic compression fracture thoracic spine. 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 Consult oncology. Present on Admission?: Yes (2) Anemia: Hemoglobin 7.2 upon admission. Hemoccult stools. No urgency to transfuse at this time, as patient actually has elevated systolic blood pressure. Check serial H&H's Present on Admission?: Yes (3) Pathologic compression fracture of spine: See above Present on Admission?: Yes (4) Pathologic rib fracture: See above Present on Admission?: Yes (5) Metastatic cancer: See above Present on Admission?: Yes (6) S/P lobectomy of lung: See above Present on Admission?: Yes (7) Hypothyroidism (acquired): Continue levothyroxine 50 mcg daily Present on Admission?: Yes History of Present Illness Chief Complaint: Patient presents to the emergency department with primary complaint of worsening shortness of breath and dyspnea on exertion, with the more acute development of dull substernal chest pain that began earlier in the day today prior to arrival Primary Care Provider: GARY Ponce The patient is a 78-year-old male resident of [facility], with a past medical history significant for lung cancer and is status post left pneumonectomy about 20 years ago. Hepresented to the emergency department with complaint of sternal chest discomfort that began earlier in the day. He reports shortness of breath and dyspnea on exertion for several days prior to this. His chest discomfort today, was brought on by leaning forward to tie shoe. He reports that he fell out of his bed a few months ago, and felt some chest discomfort heard a crunch on his right side at that time. He also had a fall a few weeks ago, where he landed on his left side and left groin pain developed. He had a hip x-ray that was reported normal. Allergies Allergy/AdvReac Type Severity Reaction Status Date / Time No Known Allergies Allergy Unverified 02/16/19 22:59 Home Medications Home Medications Medication Instructions Recorded Confirmed Type acetaminophen [Tylenol Extra 1,000 mg PO QID PRN 02/16/19 02/16/19 History Strength] albuterol sulfate 2 puff INHALATION TID 02/16/19 02/16/19 History ciclesonide [Alvesco] 1 puff INHALATION BID 02/16/19 02/16/19 History ibuprofen 400 mg PO TID 02/16/19 02/16/19 History levothyroxine 50 mcg PO DAILY 02/16/19 02/16/19 History nortriptyline 25 mg PO BID 02/16/19 02/16/19 History Past Med/Surg History Medical History Lung cancer (Resolved) Sepsis (Resolved) Surgical History S/P lobectomy of lung (Chronic) Family History Other Family history non-contributory Social History Preferred Language: Lao Communication Ability: Effective [employer] Required: No Beliefs That Will Affect Care: None Current Living Situation: Other Current Living Situation Comment: [facility]er at [facility] Feels Safe at Home: Yes Smoking Status: Never smoker Hx Alcohol Use: No Hx Substance Use: No Review of Systems Review of Systems: The patient denies palpitations, cough, lower extremity swelling, sore throat, fevers, chills, sweats, weight change, nausea, vomiting, diarrhea , constipation, abdominal pain, pelvic pain, blood in urine or stool, dysuria, urinary frequency or urgency, lightheadedness, dizziness, headache, memory loss, loss of consciousness, rash, abnormal bruising or bleeding,or night sweats. The review of systems is otherwise negative other than for that already noted above, and at least 10 systems have been reviewed. Physical Exam Physical Exam: The patient is awake, alert and oriented 3, normocephalic and atraumatic, lying in bed and in no acute distress. HEENT--PERRL, EOMI, mucous membranes and oropharynx dry. Neck--supple. No JVD. No bruits. Thyroid normal, trachea midline, no adenopathy. Heart--normal S1 and S2. No murmurs, rubs or gallops. Lungs--decreased breath sounds throughout, no respiratory distress, no accessory muscle use. Abdomen--normal bowel sounds and soft. Nontender. Nondistended. Extremities--no cyanosis or clubbing. No edema. There are good distal pulses b/l. Dermatologic--normal skin turgor. Pale appearing Neurologic--cranial nerves II through XII grossly intact. Rheumatologic--normal range of motion. Psychiatric--normal affect. Results & Data Vital Signs (Past 12 Hours) Vital Signs Temp Pulse Pulse Resp BP BP Pulse Ox 02/17/19 03:28 98.4 F 83 20 159/75 H 96 02/17/19 03:27 98.6 F 87 19 130/68 94 02/17/19 02:45 90 18 134/86 97 02/17/19 01:00 84 18 151/95 H 98 02/16/19 23:48 97 H 18 146/89 H 02/16/19 22:24 98.6 F 102 H 20 174/74 H 89 L Laboratory Results Laboratory Results WBC 7.06 K/uL (4.8-10.8) 02/16/19 22:46 RBC 2.26 M/uL (4.7-6.1) L 02/16/19 22:46 Hgb 6.8 g/dL (14.0-18.0) L* 02/17/19 03:52 Hct 21.0 % (42-52) L 02/17/19 03:52 MCV 97.8 fL (80-100) 02/16/19 22:46 MCH 31.9 pg (25-34) 02/16/19 22:46 MCHC 32.6 g/dL (32-36) 02/16/19 22:46 RDW Std Deviation 52.0 fL (36.4-46.3) H 02/16/19 22:46 RDW Coeff of Megha 14.7 % (11.5-14.5) H 02/16/19 22:46 Plt Count 371 K/uL (130-400) 02/16/19 22:46 MPV 8.2 fL (7.4-10.4) 02/16/19 22:46 Immature Gran % (Auto) 2.8 % 02/16/19 22:46 Neut % (Auto) 61.2 % 02/16/19 22:46 Lymph % (Auto) 22.1 % 02/16/19 22:46 [place] % (Auto) 12.6 % 02/16/19 22:46 Eos % (Auto) 0.7 % 02/16/19 22:46 Baso % (Auto) 0.6 % 02/16/19 22:46 Immature Gran # (Auto) 0.20 K/uL (0.00-0.02) H 02/16/19 22:46 Neut # (Auto) 4.32 K/uL (1.4-6.5) 02/16/19 22:46 Lymph # (Auto) 1.56 K/uL (1.2-3.4) 02/16/19 22:46 [place] # (Auto) 0.89 K/uL (0.11-0.59) H 02/16/19 22:46 Eos # (Auto) 0.05 K/uL (0-0.5) 02/16/19 22:46 Baso # (Auto) 0.04 K/uL (0-0.2) 02/16/19 22:46 Absolute Nucleated RBC 0.03 K/uL (0-0) H 02/16/19 22:46 Nucleated RBC % (auto) 0.4 % 02/16/19 22:46 RBC Morphology Unremarkable 02/16/19 22:46 PT 10.5 Seconds (9.0-12.0) 02/16/19 22:46 INR 1.0 (0.9-1.1) 02/16/19 22:46 APTT 23.7 Seconds (21.0-31.0) 02/16/19 22:46 PTT Ratio 0.9 02/16/19 22:46 D-Dimer 3210 ug/L FEU (0-500) H* 02/16/19 22:46 Sodium 133 mmol/L (136-145) L 02/16/19 22:46 Potassium mmol/L (3.5-5.1) 02/16/19 22:46 Chloride 101 mmol/L (98-107) 02/16/19 22:46 Carbon Dioxide 28 mmol/L (21-32) 02/16/19 22:46 Anion Gap 4.0 (3-11) 02/16/19 22:46 BUN 21 mg/dl (7-18) H 02/16/19 22:46 Creatinine 0.94 mg/dl (0.6-1.4) 02/16/19 22:46 Est Cr Clr Drug Dosing 58.4 ml/min 02/16/19 22:46 Est GFR ( Amer) 89.6 02/16/19 22:46 Est GFR (Non-Af Amer) 77.3 02/16/19 22:46 BUN/Creatinine Ratio 22.6 (10-20) H 02/16/19 22:46 Glucose 94 mg/dl (70-99) 02/16/19 22:46 Calcium 8.7 mg/dl (8.5-10.1) 02/16/19 22:46 Total Bilirubin 0.3 mg/dl (0.2-1) 02/16/19 22:46 AST U/L (15-37) 02/16/19 22:46 ALT 20 U/L (12-78) 02/16/19 22:46 Alkaline Phosphatase 76 U/L (45-117) 02/16/19 22:46 Troponin I < 0.015 ng/ml (0-0.045) 02/16/19 22:46 Total Protein 9.6 gm/dl (6.4-8.2) H 02/16/19 22:46 Albumin 2.7 gm/dl (3.4-5.0) L 02/16/19 22:46 Globulin 6.9 gm/dl (2.5-4.0) H 02/16/19 22:46 Albumin/Globulin Ratio 0.4 (0.9-2) L 02/16/19 22:46 Lipase 63 U/L (73-393) L 02/16/19 22:46 Blood Type A Positive 02/17/19 01:30 Blood Type Recheck A Positive 02/17/19 02:00 Antibody Screen NEGATIVE 02/17/19 01:30 Crossmatch See Detail 02/17/19 01:30 Diagnostic Findings [facility] [place] [phone] Ultrasound Report Patient: CATHLEEN WALTER [id number] Date: 02/16/19 MR#: [id number]: GARY PONCE Acct ID:[id number]: [address] Date: 1940City Zip: [place] [address] Age: 78Location: ED Sex: M Room/Bed: Att Phy: Diagnosis: SOB Simi Phy: SCI BennerService Date: 02/16/19 Fam Phy: Interpreting Phy: Robert Santos MD Admit Phy: Ordering Phy: Cordell Lewis M.D. cc: ~ ULTRASOUND LEFT LOWER EXTREMITY VENOUS CLINICAL HISTORY: Left leg pain. Recent fall. COMPARISON STUDY: No priors. TECHNIQUE: Real-time, grayscale, and color Doppler sonography of the deep veins of the left lower extremity was performed from the inguinal crease to the calf. Compression and augmentation were utilized. FINDINGS: There is no sonographic evidence of deep venous thrombosis identified in the left lower extremity. The common femoral, superficial femoral, and popliteal veins are patent and normally compressible. The greater saphenous vein and the profunda femoris vein at the junction with the common femoral vein are clear. The visualized calf veins are patent. IMPRESSION: There is no sonographic evidence of deep venous thrombosis identified in the left lower extremity. Electronically signed by: Robert Santos M.D. 02/16/2019 11:40 PM Dictated: 02/16/19 2340 Transcribed: 02/16/19 234 [place], [place] [phone] XRay Report Patient: CATHLEEN WALTER [id number] Date: 02/16/19 MR#: [id number]: GARY PONCE Acct ID:[id number]: [address] Date: 1940[facility] Zip: [place] [address] Age: 78Location: ED Sex: M Room/Bed: Att Phy: Diagnosis: SOB Simi Phy: SCI BennerService Date: 02/16/19 Fam Phy: Interpreting Phy: Will Connor MD Admit Phy: Ordering Phy: Cordell Lewis M.D. cc: ~ XR chest 1V portable CLINICAL HISTORY: 78 years-old Male presenting with Chest Pain. TECHNIQUE: Portable upright AP view of the chest was obtained. COMPARISON: 02/03/2017. FINDINGS: Leftward deviation of the cardiomediastinal silhouette status post left pneumonectomy. Surgical clips project over the left hilum. Complete opacification of the left hemithorax. Hyperinflation of the right lung. Prominent skin folds project over the right mid lung. No focal lung opacity. No pleural effusion or pneumothorax. Degenerative changes of the thoracic spine. Upper abdomen normal. IMPRESSION: 1. Postsurgical changes of left pneumonectomy, chronic and unchanged. No convincing evidence of acute cardiopulmonary disease. Electronically signed by: Will Connor M.D. 02/16/2019 10:38 PM Dictated: 02/16/192235 Transcribed: 02/16/192235 [place], [place] [phone] CT Scan Report Patient: CATHLEEN WALTER [id number] Date: 02/16/19 MR#: [id number]: GARY PONCE Acct ID:[id number]: [address] Date: 1940City Zip: [place] [address] Age: 78Location: ED Sex: M Room/Bed: Att Phy: Diagnosis: SOB Simi Phy: SCI BennerService Date: 02/16/19 Fam Phy: Interpreting Phy: Robert Santos MD Admit Phy: Ordering Phy: Cordell Lewis M.D. cc: ~ CT ANGIOGRAM OF THE CHEST CLINICAL HISTORY: Dyspnea. COMPARISON STUDY: Chest x-ray dated 02/16/2019. TECHNIQUE: Following the IV administration of 94 cc of Optiray 320, CT angiogram of the chest was performed from the upper abdomen to the thoracic inlet utilizing the pulmonary embolus protocol. Images are reviewed in the axial, sagittal, and coronal planes. 3-D MIPS images are created and assessed. IV contrast was administered without complication. A dose lowering technique was utilized adhering to the principles of ALARA. The examination is degraded by streak artifact from the arms which could not elevated above the chest. CT DOSE: 441.43 mGy.cm FINDINGS: Thyroid: Not visualized. Thoracic aorta: There is atherosclerotic calcification of the thoracic aorta, with is normal in caliber and demonstrates standard 3-vessel arch anatomy. No dissection is seen. Pulmonary vasculature: The pulmonary trunk is normal in caliber. There are no filling defects identified in main, lobar, or segmental pulmonary branches to suggest pulmonary embolus. Heart: The heart is enlarged and without pericardial effusion. Lungs and pleural spaces: There is postoperative change consistent with left pneumonectomy. There is compensatory hyperinflation of the right lung and leftward shift of the mediastinum. Advanced emphysematous changes noted in the right lung. Patchy airspace consolidation is seen at the right lung base. No pleural effusion is identified. Secretions are noted in the distal trachea. A calcified granuloma is noted in the right middle lobe. No concerning pulmonary lesion is seen in the right lung. Mediastinum: As noted above there is leftward shift of mediastinum. No mediastinal adenopathy is seen. Flor: Clear. Axillae: There is no axillary lymphadenopathy. Upper abdomen: Partially visualized upper abdominal viscera is within normal limits. Skeletal structures: The skeletal structures are heterogeneously osteopenic. 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 Lesions are seen throughout the thoracic spine, involving both ribs, both scapulae, right humerus, and the sternum. A large osteolytic lesion is seen in the body of T3. Tumor extends posteriorly and encroaches upon the anterior aspect of the thecal sac. The lesion Involves the left pedicle and transverse process of T3, and there is a moderate pathologic compression deformity of the T3 vertebral body. There is a large osteolytic lesion in the anterior body of T9. There are pathologic fractures of the right lateral 4th, 6th, 7th, 8th, and 9th ribs. There are also pathologic fractures of the left 3rd, 4th, and 8th ribs. IMPRESSION: 1. There is no evidence of pulmonary embolus in the main, lobar, or segmental pulmonary arteries. 2. Cardiomegaly, advanced emphysema, and postoperative change from left pneumonectomy. 3. There is patchy/nodular airspace consolidation at the right lung base. Correlate clinically for evidence of a mild infectious/inflammatory pneumonitis. 4. 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 5. There are numerous pathological rib fractures seen bilaterally, as well as a pathologic compression fracture of T3. 6. There is metastatic soft tissue from the T3 lesion which encroaches upon the thecal sac. 7. Additional findings as above. Electronically signed by: Robert Santos M.D. 02/17/2019 12:54 AM Dictated: 02/17/19 0036 Transcribed: 02/17/19 003 Code Status & VTE Plan Code Status DNR/DNI VTE Prophylaxis Plan VTE Prophylaxis will be ordered: Yes PG Care Time/CCT Total # of Minutes Spent Total Time Spent with Patient: Total time spent is greater than 50% in coordination of care (as documented) at patient's floor/unit and/or counseling patient: (1) Pathologic compression fracture of spine Encounter type: initial encounter Qualified Code(s): M48.50XA - Collapsed vertebra, not elsewhere classified, site unspecified, initial encounter for fracture (2) Anemia Anemia type: unspecified type Qualified Code(s): D64.9 - Anemia, unspecified
[2019-02-17] MEDS ORDERED: ACETAMINOPHEN 325 MG TAB ONE (06:06)
[2019-02-17] MEDS: ACETAMINOPHEN 325 MG TAB PO PRN ×3 (06:09→15:24)
[2019-02-17] MEDS: LEVOTHYROXINE SODIUM 50 MCG TABLET PO SCH (06:09)
[2019-02-17] MEDS: NORTRIPTYLINE HCL 25 MG CAP PO SCH ×2 (07:12→21:36)
[2019-02-17] MEDS ORDERED: ALBUT/IPRATROP 3MG/0.5MG NEB 3 ML VIAL NEB PRN (10:47)
[2019-02-17] MEDS: MoRPHine SULFATE 4 MG/ML 1 ML CARP\\VIAL IV PRN ×3 (13:09→21:40)
--- NOTE | 2019-02-17 15:05 | Hospitalist Progress Note ---
Date of Service February 17, 2019 Assessment & Plan (1) Lung cancer: Lung cancer status post left pneumonectomy 20 years ago. Now with multiple bilateral pathologic rib fractures & pathologic compression fracture thoracic spine. 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 - Patient is not sure he wants any further treatment. For now, will not pursue biopsy. He is considering at present, but notes he is a "lifer and has to go out somehow." - Pain control - Consult palliative care - Will discuss with radiology about biopsy if patient elects to pursue treatment - Case discussed with Dr. Triana who is happy to see the patient if he decides to pursue treatment. (2) Anemia: Hemoglobin 7.2 upon admission, then 6.8. No melena or hematochezia to indicate GI bleed. Likely anemia of chronic disease and/or bone marrow perera ppression from his metastatic cancer. - Received 2 units of PRBCs on 02/17. - Trend hgb (given his overall comfort desires, will not aggressively monitor). (3) Pathologic compression fracture of spine: See above (4) Pathologic rib fracture: See above (5) Metastatic cancer: See above (6) S/P lobectomy of lung: See above (7) COPD (chronic obstructive pulmonary disease): Unknown PFTs. - Continue steroid daily inhaler (we do not have Alvesco on formulary) - DuoNebs PRN (8) Hypothyroidism (acquired): No TSH in system. No signs/symptoms of hypo-/hyperthyroidism. - Continue levothyroxine 50 mcg daily (9) Depression: No active SI/HI. - Continue nortriptyline (10) DVT prophylaxis: Lovenox 40mg unless he decides to be fully comfort care Subjective In considerable pain from the various fractures. Not really shortness of breath. Review of Systems Review of Systems: All systems reviewed & are unremarkable except as noted in HPI & below Physical Exam Constitutional: WD/WN, vitals as above Eyes: EOM intact bilaterally; no conjunctival abnormality ENMT: external ear and nose normal, oropharynx normal Neck: trachea midline, no thyromegaly normal visual inspection Respiratory: normal respiratory effort, lungs clear to auscultation no respiratory distress Cardiovascular: RRR, no murmur, no edema Gastrointestinal (Abdomen): Inspection/Auscultation: abdomen normal to inspection; abdomen not distended Musculoskeletal: no cyanosis or clubbing, extremities motor strength 5/5 Skin: no rashes, warm and dry Neurologic: moves all extremities and awake Psychiatric: Orientation: alert, oriented to person and cooperative Results & Data Vital Signs (Past 12 Hours) Vital Signs Temp Pulse Pulse Resp BP BP BP 02/17/19 12:58 37.3 C 97 H 19 130/66 02/17/19 11:31 36.8 C 88 156/61 H 02/17/19 11:30 36.8 C 89 18 158/60 H 02/17/19 10:20 36.8 C 95 H 18 156/90 H 02/17/19 09:45 36.8 C 93 H 20 163/76 H 02/17/19 09:20 36.8 C 91 H 18 162/82 H 02/17/19 09:05 36.9 C 90 20 164/81 H 02/17/19 08:35 36.6 C 86 20 161/80 H 02/17/19 08:21 36.7 C 90 20 161/53 H 02/17/19 08:00 36.8 C 88 20 157/79 H 02/17/19 07:05 36.7 C 90 20 154/77 H 02/17/19 06:11 36.5 C 93 H 18 164/88 H 02/17/19 05:41 36.9 C 88 16 144/78 H 02/17/19 05:26 36.7 C 80 16 148/77 H 02/17/19 05:08 36.7 C 89 14 133/78 02/17/19 03:28 36.9 C 83 20 159/75 H 02/17/19 03:27 37.0 C 87 19 130/68 Pulse Ox 02/17/19 12:58 95 02/17/19 11:31 02/17/19 11:30 96 02/17/19 10:20 93 02/17/19 09:45 98 02/17/19 09:20 100 02/17/19 09:05 95 02/17/19 08:35 94 02/17/19 08:21 97 02/17/19 08:00 96 02/17/19 07:05 94 02/17/19 06:11 97 02/17/19 05:41 95 02/17/19 05:26 96 02/17/19 05:08 95 02/17/19 03:28 96 02/17/19 03:27 94 PG Care Time/CCT Total # of Minutes Spent Total Time Spent with Patient: Total time spent is greater than 50% in coordination of care (as documented) at patient's floor/unit and/or counseling patient: (1) Anemia Anemia type: unspecified type Qualified Code(s): D64.9 - Anemia, unspecified (2) Pathologic compression fracture of spine Encounter type: initial encounter Qualified Code(s): M48.50XA - Collapsed vertebra, not elsewhere classified, site unspecified, initial encounter for fracture
[2019-02-17] MEDS: FLUTICASONE HFA 110MCG INHALER INH SCH (21:43)
[2019-02-17] MEDS ORDERED: OXYCODONE HCL 10 MG TABCR (OXYCONTIN) PO ONE (23:20)
[2019-02-17] MEDS ORDERED: OXYCODONE HCL 20 MG TABCR (OXYCONTIN) ONE (23:42)
[2019-02-18 05:57] LABS: Hematocrit (blood only) 27.5 % (42-52); Hemoglobin 9.1 g/dL (14.0-18.0); Mean Corpuscular Hgb Conc 33.1 g/dL (32-36); Mean Corpuscular Volume 95.5 fL (80-100); Nucleated RBC # (auto) 0.04 K/uL (0-0); Nucleated RBC % (auto) 0.6 %; Platelet Count 272 K/uL (130-400); RDW Coefficient of Variation 15.3 % (11.5-14.5); RDW Standard Deviation 52.6 fL (36.4-46.3); Red Blood Count 2.88 M/uL (4.7-6.1); White Blood Count 7.08 K/uL (4.8-10.8)
[2019-02-18] MEDS: ACETAMINOPHEN 325 MG TAB PO PRN ×2 (06:10→11:14)
[2019-02-18] MEDS: LEVOTHYROXINE SODIUM 50 MCG TABLET PO SCH (06:11)
[2019-02-18] MEDS: NORTRIPTYLINE HCL 25 MG CAP PO SCH ×2 (07:29→20:17)
[2019-02-18] MEDS: FLUTICASONE HFA 110MCG INHALER INH SCH ×2 (07:29→20:17)
[2019-02-18] MEDS: ENOXAPARIN INJ 40 MG/0.4 ML SYR SQ SCH (07:51)
[2019-02-18] MEDS ORDERED: ACETAMINOPHEN 500 MG TAB PO STA (12:39)
--- NOTE | 2019-02-18 12:47 | Hospitalist Progress Note ---
Date of Service February 18, 2019 Assessment & Plan (1) Pneumonia: On 02/19, patient developed fever & tachycardia. CTA chest on 02/17 showed a patchy consolidation in the right lung base. Given his 0/4 SIRS, I felt this might be atelectasis; however, with present vitals changes, will start CAP coverage. No known risk for healthcare-associated pneumonia or aspiration despite location. Can broaden if he clinically worsens. - Ceftriaxone & azithromycin (2) Lung cancer: Lung cancer status post left pneumonectomy 20 years ago. Now with multiple bilateral pathologic rib fractures & pathologic compression fracture thoracic spine. 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 - Patient is not sure he wants any further treatment. For now, will not pursue biopsy. He is considering at present, but notes he is a "lifer and has to go out somehow." - Patient does want to speak with his family about his condition. Unclear how we can manage this given his prisoner-status. - CM consulted - May be able to help us discuss his case with his family. - Pain control - Consult palliative care - Case discussed with Dr. Triana who is happy to see the patient if he decides to pursue treatment. (3) Anemia: Hemoglobin 7.2 upon admission, then 6.8. No melena or hematochezia to indicate GI bleed. Likely anemia of chronic disease and/or bone marrow suppression from his metastatic cancer. - Received 2 units of PRBCs on 02/17. - Hemoglobin up to 9.1 on 02/18. Given his overall comfort desires, will not aggressively monitor or pursue investigation. (4) Pathologic compression fracture of spine: See above (5) Pathologic rib fracture: See above (6) Metastatic cancer: See above (7) S/P lobectomy of lung: See above (8) COPD (chronic obstructive pulmonary disease): Unknown PFTs. - Continue steroid daily inhaler (we do not have Alvesco on formulary) - DuoNebs PRN (9) Hypothyroidism (acquired): No TSH in system. No signs/symptoms of hypo-/hyperthyroidism. - Continue levothyroxine 50 mcg daily (10) Depression: No active SI/HI. - Continue nortriptyline (11) DVT prophylaxis: Lovenox 40mg unless he decides to be fully comfort care Subjective Still with pain in the rib cage and thigh from likely metastatic disease. Still does not want to be treated. Stable shortness of breath. Review of Systems Review of Systems: All systems reviewed & are unremarkable except as noted in HPI & below Physical Exam Constitutional: WD/WN, vitals as above Eyes: EOM intact bilaterally; no conjunctival abnormality ENMT: external ear and nose normal, oropharynx normal Neck: trachea midline, no thyromegaly normal visual inspection Respiratory: normal respiratory effort, lungs clear to auscultation no respiratory distress Cardiovascular: RRR, no murmur, no edema Gastrointestinal (Abdomen): Inspection/Auscultation: abdomen normal to ins pection; abdomen not distended Musculoskeletal: no cyanosis or clubbing, extremities motor strength 5/5 Skin: no rashes, warm and dry Neurologic: moves all extremities and awake Psychiatric: Orientation: alert, oriented to person and cooperative Results & Data Vital Signs (Past 12 Hours) Vital Signs Temp Pulse Resp BP BP Pulse Ox 02/18/19 08:31 37.9 C H 109 H 19 125/57 L 92 02/18/19 04:16 96 H 18 120/68 90 02/18/19 04:03 37.5 C PG Care Time/CCT Total # of Minutes Spent Total Time Spent with Patient: Total time spent is greater than 50% in coordination of care (as documented) at patient's floor/unit and/or counseling patient: (1) Anemia Anemia type: unspecified type Qualified Code(s): D64.9 - Anemia, unspecified (2) Pathologic compression fracture of spine Encounter type: initial encounter Qualified Code(s): M48.50XA - Collapsed vertebra, not elsewhere classified, site unspecified, initial encounter for fracture
[2019-02-18] MEDS: MoRPHine SULFATE 10 MG/ML CARP/VIAL IV PRN ×2 (13:25→20:13)
[2019-02-18] MEDS: cefTRIAXone SODIUM 1,000 MG in DEXTROSE 5% 50 ML IV SCH (13:43)
[2019-02-18] MEDS: AZITHROMYCIN 500 MG in DEXTROSE 5% 250 ML IV SCH (14:16)
[2019-02-19] MEDS: MoRPHine SULFATE 10 MG/ML CARP/VIAL IV PRN ×3 (00:13→14:08)
[2019-02-19] MEDS ORDERED: ACETAMINOPHEN 325 MG TAB PO PRN (03:37)
[2019-02-19] MEDS: ACETAMINOPHEN 65 ML IV PRN ×2 (04:11→16:13)
--- NOTE | 2019-02-19 06:22 | Ultrasound Report ---
US venous doppler LE BI CLINICAL HISTORY: Calf pain with malignancy COMPARISON STUDY: February 16, 2019 FINDINGS: Real-time and color flow Doppler imaging were performed. Flow was seen within the femoral, popliteal and calf veins with no intraluminal thrombus demonstrated. The saphenous vein is patent. IMPRESSION: No evidence of lower extremity DVT. Electronically signed by: Noe Miller M.D. 02/19/2019 6:21 AM
[2019-02-19] MEDS: LEVOTHYROXINE SODIUM 50 MCG TABLET PO SCH (06:26)
[2019-02-19 06:37] LABS: Hematocrit (blood only) 26.6 % (42-52); Hemoglobin 8.7 g/dL (14.0-18.0); Mean Corpuscular Hgb Conc 32.7 g/dL (32-36); Mean Corpuscular Volume 97.4 fL (80-100); Nucleated RBC # (auto) 0.04 K/uL (0-0); Nucleated RBC % (auto) 0.5 %; Platelet Count 267 K/uL (130-400); RDW Coefficient of Variation 15.1 % (11.5-14.5); RDW Standard Deviation 53.6 fL (36.4-46.3); Red Blood Count 2.73 M/uL (4.7-6.1); White Blood Count 7.87 K/uL (4.8-10.8)
[2019-02-19 07:06] LABS: BUN Creatinine Ratio 27.9 (10-20); Creatinine Clr Calc Pharmacy 36.4 ml/min; Est GFR (African American) 50.5; Est GFR (Non-African American) 43.6; Magnesium 2.3 mg/dl (1.8-2.4); Potassium 4.3 mmol/L (3.5-5.1)
[2019-02-19] MEDS: NORTRIPTYLINE HCL 25 MG CAP PO SCH ×2 (08:42→20:36)
[2019-02-19] MEDS: ENOXAPARIN INJ 40 MG/0.4 ML SYR SQ SCH (08:42)
[2019-02-19] MEDS: FLUTICASONE HFA 110MCG INHALER INH SCH ×2 (08:43→20:36)
--- NOTE | 2019-02-19 11:12 | Palliative Care Consultation ---
Date of Consultation February 19, 2019 Assessment & Plan (1) Goals of care, counseling/discussion: -78 year old male patient with PMH COPD, lung cancer s/p pneumonectomy 20 years ago, presented to the hospital with worsening SOB. CT chest showed numerous pathologic rib fractures as well as pathologic compression fracture of T3. Also showed some patchy airspace consolidations that could represent inflammation/infectious process. Patient did spike a fever as high as 39.2, blood cultures were drawn after abx were started. Despite abx coverage, patient has continued to decline from a respiratory and pain standpoint. He is thin, frail, albumin is 2.7. He is requiring IV morphine at 6mg, received four doses in 24 hours. Patient has stated that he does not want further workup for his cancer. Palliative care is consulted to discuss goals of care. -Met with patient this morning in room 251. Two guards present. Patient is lethargic but able to wake up and tell me where he is and about his medical condition. He stated that he just wants to be comfortable and agreed that he did not want to pursue further workup. -Patient states his pain is currently under control with the IV morphine. -Spoke with attending physician who will call residential physician for sign off. Spoke with case management as well. [facility] can accept patient back with IV morphine PRN pain or SOB. Would continue with the 6mg IV as needed, as it is keeping patietn's symptoms under control. -Will add scopolamine patch and Atropine 1% oph soln 4 drops SL Q1h PRN secretions. -Once everything is set up, patient can return to residential on comfort/hospice care. -Of note, abx are continued at this time until blood cultures are resulted. -PPS 20%. Prognosis is likely days at this point. (2) Metastatic cancer: (3) Pathologic compression fracture of spine: Encounter type: initial encounter Qualified Code(s): M48.50XA - Collapsed vertebra, not elsewhere classified, site unspecified, initial encounter for fracture (4) Pathologic rib fracture: (5) COPD (chronic obstructive pulmonary disease): Supervising Physician Co-Signing Physician Notes Patient seen and examined, patient appears comfortable Chart reviewed, collaborated with MISHA Khan PE: Patient awake, appears comfortable on O2 via oxime mask HEENT: EOMI, hearing within normal limits Respirations: Coarse breath sounds bilaterally CV: Tachycardic Abdomen: Not distended Agree with above note, assessment and plan as per MISHA Khan-will continue to follow and assist with transition back to residential on comfort care History of Present Illness Reason for Consultation: Goals of care Requesting Physician: Dr. Enrrique Mack Attending Physician: Chase Douglas History of Present Illness This 78 year old male patient with PMH COPD, lung cancer s/p pneumonectomy 20 years ago, presented to the hospital with worsening SOB. CT chest showed numerous pathologic rib fractures as well as pathologic compression fracture of T3. Also showed some patchy airspace consolidations that could represent inflammation/infectious process. Patient did spike a fever as high as 39.2, blood cultures were drawn after abx were started. Despite abx coverage, patient has continued to decline from a respiratory and pain standpoint. He is thin, frail, albumin is 2.7. He is requiring IV morphine at 6mg, received four doses in 24 hours. Patient has stated that he does not want further workup for his cancer. Palliative care is consulted to discuss goals of care. Thank you kindly for this consult. I will follow as needed. Allergies Allergy/AdvReac Type Severity Reaction Status Date / Time No Known Allergies Allergy Unverified 02/16/19 22:59 Home Medications Home Medications Medication Instructions Recorded Confirmed Type acetaminophen [Tylenol Extra 1,000 mg PO QID PRN 02/16/19 02/16/19 History Strength] albuterol sulfate 2 puff INHALATION TID 02/16/19 02/16/19 History ciclesonide [Alvesco] 1 puff INHALATION BID 02/16/19 02/16/19 History ibuprofen 400 mg PO TID 02/16/19 02/16/19 History levothyroxine 50 mcg PO DAILY 02/16/19 02/16/19 History nortriptyline 25 mg PO BID 02/16/19 02/16/19 History Patient History Medical History Lung cancer (Resolved) Sepsis (Resolved) Surgical History S/P lobectomy of lung (Chronic) Family History Other Family history non-contributory Social History Preferred Language: Serbian Communication Ability: Impaired Carpet Jack Required: No Beliefs That Will Affect Care: None Current Living Situation: Other Current Living Situation Comment: [facility] at [facility] Feels Safe at Home: Yes Smoking Status: Never smoker Hx Alcohol Use: No Hx Substance Use: No Review of Systems Review of Systems: C/o occasional pain in ribs and back. C/o SOB. No N/V or abdominal pain. Physical Exam Constitutional: + ill appearing, + thin and + frail appearing; no acute distress ENMT: Ears: no hearing impairment Respiratory: + labored breathing; no respiratory distress Auscultation: + diminished lung sounds and + rhonchi Cardiovascular: Rate/Rhythm: regular rate and regular rhythm Extremities: no edema Gastrointestinal (Abdomen): Inspection/Auscultation: abdomen normal to inspection and normal bowel sounds Percussion/Palpation: abdomen soft Musculoskeletal: BL toes are cold Neurologic: awake Psychiatric: Orientation: oriented x 3 Results & Data Vital Signs (Past 12 Hours) Vital Signs Temp Pulse Resp BP BP Pulse Ox 02/19/19 07:25 96 H 108/50 L 02/19/19 07:19 36.9 C 92 H 20 88/50 L 97 02/19/19 03:32 39.2 C H 110 H 16 115/63 94 02/18/19 23:20 36.9 C 114 H 18 117/66 92 PG Care Time/CCT Total # of Minutes Spent Total Time Spent with Patient: Total time spent is greater than 50% in coordination of care (as documented) at patient's floor/unit and/or counseling patient: Time Spent Midlevel 70 minutes with >50% of the time spent at bedside with patient, casey saw operator, and attending physician discussing condition and GOC.
[2019-02-19] MEDS: cefTRIAXone SODIUM 1,000 MG in DEXTROSE 5% 50 ML IV SCH (13:58)
[2019-02-19] MEDS: AZITHROMYCIN 500 MG in DEXTROSE 5% 250 ML IV SCH (14:40)
[2019-02-19] MEDS ORDERED: MoRPHine SULFATE 4 MG/ML 1 ML CARP\\VIAL IV PRN (15:14)
[2019-02-19] MEDS ORDERED: ATROPINE SULFATE 1% OP SOLN 2 ML BTL OP PRN (16:24)
[2019-02-19] MEDS ORDERED: SCOPOLAMINE 1.5 MG TDSY TD SCH (17:00)
[2019-02-19 17:01] LABS: Hematocrit (blood only) 25.9 % (42-52); Hemoglobin 8.5 g/dL (14.0-18.0); Mean Corpuscular Hgb Conc 32.8 g/dL (32-36); Mean Corpuscular Volume 98.1 fL (80-100); Mean Platelet Volume 7.8 fL (7.4-10.4); Nucleated RBC # (auto) 0.02 K/uL (0-0); Nucleated RBC % (auto) 0.2 %; Platelet Count 290 K/uL (130-400); RDW Coefficient of Variation 15.1 % (11.5-14.5); RDW Standard Deviation 53.9 fL (36.4-46.3); Red Blood Count 2.64 M/uL (4.7-6.1); White Blood Count 7.82 K/uL (4.8-10.8)
[2019-02-19] MEDS: MoRPHine SULFATE 5 MG/0.25 ML UDP PO PRN ×2 (17:11→20:34)
[2019-02-19] MEDS: ATROPINE SULFATE 1% OP SOLN 2 ML BTL SL PRN ×2 (17:18→20:42)
[2019-02-19 17:21] LABS: Albumin Level 2.3 gm/dl (3.4-5.0); BUN Creatinine Ratio 34.1 (10-20); Calcium 8.6 mg/dl (8.5-10.1); Creatinine Clr Calc Pharmacy 47.4 ml/min; Est GFR (African American) 69.5; Potassium 4.3 mmol/L (3.5-5.1)
[2019-02-19 17:24] LABS: Albumin Globulin Ratio 0.3 (0.9-2); Basophils # (auto) 0.03 K/uL (0-0.2); Basophils % (auto) 0.4 %; Bilirubin,Total 0.2 mg/dl (0.2-1); Globulin 6.6 gm/dl (2.5-4.0); Immature Granulocytes # (auto) 0.41 K/uL (0.00-0.02); Immature Granulocytes % (auto) 5.2 %; Lymphocytes # (auto) 1.12 K/uL (1.2-3.4); Lymphocytes % (auto) 14.3 %; Neutrophils # (auto) 5.56 K/uL (1.4-6.5); Neutrophils % (auto) 71.1 %; Total Protein 8.9 gm/dl (6.4-8.2)
[2019-02-19] MEDS ORDERED: MoRPHine SULFATE 4 MG/ML 1 ML CARP\\VIAL IV STA (21:14)
--- NOTE | 2019-02-19 22:36 | Hospitalist Progress Note ---
Date of Service February 19, 2019 Assessment & Plan (1) Pneumonia: On 02/19, patient developed fever & tachycardia. CTA chest on 02/17 showed a patchy consolidation in the right lung base. Given his 0/4 SIRS, I felt this might be atelectasis; however, with present vitals changes, will start CAP coverage. No known risk for healthcare-associated pneumonia or aspiration despite location. Can broaden if he clinically worsens. - Ceftriaxone & azithromycin Will continue with antibiotics for the meantime. However, it appears his main process going forward is his lung cancer. It is very likely that his lung cancer is causing his fever, given that patient has not repsonded to antibiotics. Patient had discussed that he does not want life prolonging measures. I informed shelter that he will be discharged on hospice and comfort measures, but they will be able to receive him tomorrow. The provider at the hospital stated they would get a hold of the family. Patient is currently receiving morphine for pain. Will cut back on morphine dose as patient is lethargic. Will try to find balance that keeps patient comfortable. Given that patient does not want life prolonging measures, and wants to be comfortable, held off narcan for the moment. Plan ultimately is to discharge on 02/20. Will try to place on oral roxanol. (2) Lung cancer: Lung cancer status post left pneumonectomy 20 years ago. Now with multiple bilateral pathologic rib fractures & pathologic compression fracture thoracic spine. 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 As noted above. Longterm will get in touch with family. - Pain control - Consult palliative care - Case discussed with Dr. Triana who is happy to see the patient if he decides to pursue treatment. (3) Anemia: Hemoglobin 7.2 upon admission, then 6.8. No melena or hematochezia to indicate GI bleed. Likely anemia of chronic disease and/or bone marrow suppression from his metastatic cancer. - Received 2 units of PRBCs on 02/17. Hemoglobin improved after PRBCs. (4) Pathologic compression fracture of spine: See above (5) Pathologic rib fracture: See above (6) Metastatic cancer: See above (7) S/P lobectomy of lung: See above (8) COPD (chronic obstructive pulmonary disease): Unknown PFTs. - Continue steroid daily inhaler (we do not have Alvesco on formulary) - DuoNebs PRN (9) Hypothyroidism (acquired): No TSH in system. No signs/symptoms of hypo-/hyperthyroidism. - Continue levothyroxine 50 mcg daily (10) Depression: No active SI/HI. - Continue nortriptyline (11) DVT prophylaxis: Lovenox 40mg unless he decides to be fully comfort care Spent 65 minutes in management of patient. 14:00 to 14:30 16:00 to 16:20 17:15 to 17:30 Subjective Patient appears to be lethargic. Does not provide significant medical history. Review of Systems Review of Systems: Unobtainable due to cognitive status Physical Exam Physical Exam: Constitutional: lethargic, vitals as above; Eyes: EOM intact bilaterally; no conjunctival abnormality ENMT: external ear and nose normal, oropharynx normal Neck: trachea midline, no thyromegaly normal visual inspection Respiratory: normal respiratory effort, lungs clear to auscultation Cardiovascular: RRR, no murmur, no edema Gastrointestinal (Abdomen): Inspection/Auscultation: abdomen normal to inspection; abdomen not distended Musculoskeletal: no cyanosis or clubbing Skin: no rashes, warm and dry Neurologic: unable to assess, awakens with verbal stimuli but falls asleep Results & Data Vital Signs (Past 12 Hours) Vital Signs Temp Pulse Resp BP BP Pulse Ox 02/19/19 19:08 37.7 C H 100 H 17 93/47 L 98 02/19/19 14:39 39.3 C H 103 H 16 107/57 L 93 02/19/19 11:26 36.9 C 54 L 18 129/83 100 PG Care Time/CCT Total # of Minutes Spent Total Time Spent: 65 Total Time Spent with Patient: Total time spent is greater than 50% in coordination of care (as documented) at patient's floor/unit and/or counseling patient: Prolonged Care Time Prolonged Care Time: Yes Total Prolonged Care Time: 65 (1) Anemia Anemia type: unspecified type Qualified Code(s): D64.9 - Anemia, unspecified (2) Pathologic compression fracture of spine Encounter type: initial encounter Qualified Code(s): M48.50XA - Collapsed vertebra, not elsewhere classified, site unspecified, initial encounter for fracture
[2019-02-20] MEDS: CHECK SCOPOLAMINE PATCH PLACEMENT SCH ×3 (00:09→15:44)
[2019-02-20] MEDS: ACETAMINOPHEN 65 ML IV PRN (00:23)
[2019-02-20] MEDS: ATROPINE SULFATE 1% OP SOLN 2 ML BTL SL PRN (00:30)
[2019-02-20] MEDS: MoRPHine SULFATE 5 MG/0.25 ML UDP PO PRN ×6 (00:54→22:10)
[2019-02-20] MEDS ORDERED: HYDROmorphone INJ 0.5 MG/0.5 ML SYR IV STA (01:09)
[2019-02-20] MEDS ORDERED: HYDROmorphone INJ 0.5 MG/0.5 ML SYR ONE (01:14)
[2019-02-20] MEDS: LEVOTHYROXINE SODIUM 50 MCG TABLET PO SCH (05:42)
[2019-02-20] MEDS: FLUTICASONE HFA 110MCG INHALER INH SCH ×2 (08:26→20:46)
[2019-02-20] MEDS: ENOXAPARIN INJ 40 MG/0.4 ML SYR SQ SCH (08:26)
[2019-02-20] MEDS: NORTRIPTYLINE HCL 25 MG CAP PO SCH ×2 (08:27→20:47)
--- NOTE | 2019-02-20 09:39 | Palliative Care Progress Note ---
Date of Service February 20, 2019 Assessment & Plan (1) Goals of care, counseling/discussion: -Patient is awake but confused and lethargic today. Periods of restlessness. -Requiring frequent doses of IV morphine and PO Roxanol for pain and respiratory symptoms. -Switched patient from oxymask to nasal cannula. The oxymask was starting to rub patients nose and create reddened area. -Patient is still receiving IV abx. These will be discontinued upon discharge to group home. -Continue IV morphine at 4mg IV Q3h PRN. Roxanol is ordered 5mg PO Q1h PRN. -Plan is for patient to discharge to group home on comfort/hospice care today as long as he is stable enough to leave. (2) Metastatic cancer: (3) Pathologic compression fracture of spine: (4) Pathologic rib fracture: (5) COPD (chronic obstructive pulmonary disease): Review of Systems Review of Systems: Unobtainable due to cognitive status Physical Exam Constitutional: + ill appearing, + thin and + frail appearing; no acute distress ENMT: Ears: no hearing impairment Respiratory: + labored breathing; no respiratory distress Auscultation: + diminished lung sounds and + rhonchi Cardiovascular: Rate/Rhythm: regular rate and regular rhythm Extremities: no edema Gastrointestinal (Abdomen): Inspection/Auscultation: abdomen normal to inspection and normal bowel sounds Percussion/Palpation: abdomen soft Skin: + mottling (BL knees) Neurologic: + confused Psychiatric: Orientation: + not oriented x 3 Results & Data Vital Signs (Past 12 Hours) Vital Signs Temp Pulse Resp BP Pulse Ox 02/19/19 23:58 38.8 C H 105 H 20 134/68 98 PG Care Time/CCT Total # of Minutes Spent Total Time Spent with Patient: Total time spent is greater than 50% in c oordination of care (as documented) at patient's floor/unit and/or counseling patient: Time Spent Midlevel 25 minutes with >50% of the time spent at bedside with patient and attending physician discussing comfort and POC. (1) Pathologic compression fracture of spine Encounter type: initial encounter Qualified Code(s): M48.50XA - Collapsed vertebra, not elsewhere classified, site unspecified, initial encounter for fracture
[2019-02-20] MEDS: cefTRIAXone SODIUM 1,000 MG in DEXTROSE 5% 50 ML IV SCH (13:18)
[2019-02-20] MEDS: AZITHROMYCIN 500 MG in DEXTROSE 5% 250 ML IV SCH (13:49)
--- NOTE | 2019-02-20 23:19 | Hospitalist Progress Note ---
Date of Service February 20, 2019 Assessment & Plan (1) Pneumonia: On 02/19, patient developed fever & tachycardia. CTA chest on 02/17 showed a patchy consolidation in the right lung base. Given his 0/4 SIRS, I felt this might be atelectasis; however, with present vitals changes, will start CAP coverage. No known risk for healthcare-associated pneumonia or aspiration despite location. Can broaden if he clinically worsens. - Ceftriaxone & azithromycin Will continue with antibiotics for the meantime. However, it appears his main process going forward is his lung cancer. It is very likely that his lung cancer is causing his fever, given that patient has not repsonded to antibiotics. Patient had discussed that he does not want life prolonging measures. I informed [facility] that he will be discharged on hospice and comfort measures, but they will be able to receive him tomorrow. The provider at the hospital stated they would get a hold of the family. Patient is currently receiving morphine for pain. Will cut back on morphine dose as patient is lethargic. Will try to find balance that keeps patient comfortable. Given that patient does not want life prolonging measures, and wants to be comfortable, held off narcan for the moment. Plan ultimately is to discharge on 02/21 as facility is trying to obtain pain medicine. Patient tolerating roxanol. (2) Lung cancer: Lung cancer status post left pneumonectomy 20 years ago. Now with multiple bilateral pathologic rib fractures & pathologic compression fracture thoracic spine. 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 As noted above. [facility] will get in touch with family. - Pain control - Consult palliative care - Case discussed with Dr. Triana who is happy to see the patient if he decides to pursue treatment. (3) Anemia: Hemoglobin 7.2 upon admission, then 6.8. No melena or hematochezia to indicate GI bleed. Likely anemia of chronic disease and/or bone marrow suppression from his metastatic cancer. - Received 2 units of PRBCs on 02/17. Hemoglobin improved after PRBCs. (4) Pathologic compression fracture of spine: See above (5) Pathologic rib fracture: See above (6) Metastatic cancer: See above (7) S/P lobectomy of lung: See above (8) COPD (chronic obstructive pulmonary disease): Unknown PFTs. - Continue steroid daily inhaler (we do not have Alvesco on formulary) - DuoNebs PRN (9) Hypothyroidism (acquired): No TSH in system. No signs/symptoms of hypo-/hyperthyroidism. - Continue levothyroxine 50 mcg daily (10) Depression: No active SI/HI. - Continue nortriptyline (11) DVT prophylaxis: Lovenox 40mg unless he decides to be fully comfort care Spent 35 minutes in management of patient. informed [facility], discussed with case management Subjective Patient is lethargic. Does not provide significant history. Review of Systems Review of Systems: Unobtainable due to reduced consciousness Physical Exam Physical Exam: Constitutional: lethargic, vitals as above; Eyes: EOM intact bilaterally; no conjunctival abnormality ENMT: external ear and nose normal, oropharynx normal Neck: trachea midline, no thyromegaly normal visual inspection Respiratory: normal respiratory effort, lungs clear to auscultation Cardiovascular: RRR, no murmur, no edema Gastrointestinal (Abdomen): Inspection/Auscultation: abdomen normal to inspection; abdomen not distended Musculoskeletal: no cyanosis or clubbing Skin: no rashes, warm and dry Neurologic: unable to assess, awakens with verbal stimuli but falls asleep PG Care Time/CCT Total # of Minutes Spent Total Time Spent with Patient: Total time spent is greater than 50% in coordination of care (as documented) at patient's floor/unit and/or counseling patient: (1) Anemia Anemia type: unspecified type Qualified Code(s): D64.9 - Anemia, unspecified (2) Pathologic compression fracture of spine Encounter type: initial encounter Qualified Code(s): M48.50XA - Collapsed vertebra, not elsewhere classified, site unspecified, initial encounter for fracture
[2019-02-21] MEDS: CHECK SCOPOLAMINE PATCH PLACEMENT SCH ×2 (00:01→08:36)
[2019-02-21] MEDS: LEVOTHYROXINE SODIUM 50 MCG TABLET PO SCH (05:53)
[2019-02-21] MEDS: FLUTICASONE HFA 110MCG INHALER INH SCH (08:35)
[2019-02-21] MEDS: ENOXAPARIN INJ 40 MG/0.4 ML SYR SQ SCH (08:35)
[2019-02-21] MEDS: NORTRIPTYLINE HCL 25 MG CAP PO SCH (08:35)
--- NOTE | 2019-03-01 22:05 | Discharge Summary ---
Date of Service February 21, 2019 Admission HPI Per Admitting Provider The patient is a 78-year-old male resident of [facility], with a past medical history significant for lung cancer and is status post left pneumonectomy about 20 years ago. Hepresented to the emergency department with complaint of sternal chest discomfort that began earlier in the day. He reports shortness of breath and dyspnea on exertion for several days prior to this. His chest discomfort today, was brought on by leaning forward to tie shoe. He reports that he fell out of his bed a few months ago, and felt some chest discomfort heard a crunch on his right side at that time. He also had a fall a few weeks ago, where he landed on his left side and left groin pain developed. He had a hip x-ray that was reported normal. Principal Diagnosis lung cancer Discharge Exam Constitutional: Awake alertvitals as above; Eyes: EOM intact bilaterally; no conjunctival abnormality ENMT: external ear and nose normal, oropharynx normal Neck: trachea midline, no thyromegaly normal visual inspection Respiratory: normal respiratory effort, lungs clear to auscultation Cardiovascular: RRR, no murmur, no edema Gastrointestinal (Abdomen): Inspection/Auscultation: abdomen normal to inspection; abdomen not distended Musculoskeletal: no cyanosis or clubbing Skin: no rashes, warm and dry Discharge Data Allergies Allergy/AdvReac Type Severity Reaction Status Date / Time No Known Allergies Allergy Unverified 02/16/19 22:59 Consultations 02/17/19 01:19 ED Decision to Admit Stat 02/17/19 03:27 Consult Case Management - Discharge Planning Routine 02/17/19 10:47 Consult Palliative Care Routine Ordered Studies 02/16/19 22:20 US venous doppler LE LT Stat 02/16/19 23:58 CT angio chest PE protocol Stat 02/18/19 17:29 US venous doppler LE BI Routine Hospital Course (1) Pneumonia: On 02/19, patient developed fever & tachycardia. CTA chest on 02/17 showed a patchy consolidation in the right lung base. Given his 0/4 SIRS, I felt this might be atelectasis; however, with present vitals changes, will start CAP coverage. No known risk for healthcare-associated pneumonia or aspiration despite location. Can broaden if he clinically worsens. - Ceftriaxone & azithromycin Will continue with antibiotics for the meantime. However, it appears his main process going forward is his lung cancer. It is very likely that his lung cancer is causing his fever, given that patient has not repsonded to antibiotics. Patient had discussed that he does not want life prolonging measures. I informed assisted that he will be discharged on hospice and comfort measures, but they will be able to receive him tomorrow. The provider at the hospital stated they would get a hold of the family. Patient is currently receiving morphine for pain. Will cut back on morphine dose as patient is lethargic. Will try to find balance that keeps patient comfortable. Given that patient does not want life prolonging measures, and wants to be comfortable, held off narcan for the moment. On day of discharge, patient was moreawake and alERT. PATIENT IS AGEEABLE TO HOSPICE. Plan is to discharge him back to skilled nursing on hospice Plan ultimately is to discharge on 02/21 as facility is trying to obtain pain medicine. Patient tolerating roxanol. (2) Lung cancer: Lung cancer status post left pneumonectomy 20 years ago. Now with multiple bilateral pathologic rib fractures & pathologic compression fracture thoracic spine. 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 As noted above. [facility] will get in touch with family. - Pain control - Consult palliative care - Case discussed with Dr. Triana who is happy to see the patient if he decides to pursue treatment. (3) Anemia: Hemoglobin 7.2 upon admission, then 6.8. No melena or hematochezia to indicate GI bleed. Likely anemia of chronic disease and/or bone marrow suppression from his metastatic cancer. - Received 2 units of PRBCs on 02/17. Hemoglobin improved after PRBCs. (4) Pathologic compression fracture of spine: See above (5) Pathologic rib fracture: See above (6) Metastatic cancer: See above (7) S/P lobectomy of lung: See above (8) COPD (chronic obstructive pulmonary disease): Unknown PFTs. - Continue steroid daily inhaler (we do not have Alvesco on formulary) - DuoNebs PRN (9) Hypothyroidism (acquired): No TSH in system. No signs/symptoms of hypo-/hyperthyroidism. - Continue levothyroxine 50 mcg daily (10) Depression: No active SI/HI. - Continue nortriptyline (11) DVT prophylaxis: Lovenox 40mg unless he decides to be fully comfort care Total Time Total Time Spent Total Time Spent (In Minutes): 32 Total Time Includes: Examination of the Patient, Discharge Planning and Medication Reconciliation Discharge Plan Discharge Items [facility] Reason For Visit: CHEST PAIN, ANEMIA Discharge Diagnosis: Metastatic cancer Discharge Goals: Decrease discomfort Activity: As commented below Non-emergency contact: Primary Care Provider Call non-emergency contact if: you have any medication questions Follow-up/Referrals: Kenisha VEGA [Primary Care Provider] - Diet: Regular Addtl Provider Instructions: You regina be discharged on comfort measures and hospice. Prescriptions: New morphine concentrate 100 mg/5 mL (20 mg/mL) Solution 0.25 ml PO Q1H PRN (Reason: pain/ dyspnea) Qty: 0 RF: 0 scopolamine base [Transderm-Scop] 1 mg over 3 days Patch 3 Day 1.5 mg transdermal Q3D@2100 Qty: 0 RF: 0 atropine 1 % Drops 4 drp sublingual Q2H PRN (Reason: secretions) Qty: 10 RF: 0 Continued acetaminophen [Tylenol Extra Strength] 500 mg Tablet 1,000 mg PO QID PRN (Reason: Pain) RF: 0 nortriptyline 25 mg Capsule 25 mg PO BID RF: 0 levothyroxine 50 mcg Tablet 50 mcg PO DAILY RF: 0 ibuprofen 400 mg Tablet 400 mg PO TID RF: 0 albuterol sulfate 90 mcg/actuation Hfa Aerosol Inhaler 2 puff INHALATION TID RF: 0 Alvesco 160 mcg/actuation Hfa Aerosol Inhaler 1 puff INHALATION BID RF: 0 Stand-Alone Forms: On License Of [facility] Discharge Orders: Discharge Order (Routine); Ordered 02/21/19 Ordered By: Chase Douglas Admission Data Admit Date/Time: 02/17/19 02:17 Attending Provider: Chase Douglas Admit Provider: Seth Clay Primary Care Provider: Kenisha VEGA Other Providers: Vick Mack ; Seth Clay ; Mara Boykin Service: Medical Other Interventions: Discharge Summary Assessment (RN) Last Done: 02/21/19 09:26 DC Date/Time DO NOT enter until pt leaves facility: 02/21/19 09:40
== END 2019-02-21 09:40 | DRG 194 ==
LOC: ED 22:05 → 2S 02-17 02:17 → SUATTDRO 02-17 02:17 → 2S 02-17 02:45 → 2W 02-17 12:39 → 4W 02-19 22:02
DX: J44.9 Chronic obstructive pulmonary disease, unspecified; M48.54XA Collapsed vertebra, not elsewhere classified, thoracic region, initial encounter for fracture; D64.9 Anemia, unspecified; E03.9 Hypothyroidism, unspecified; Z87.891 Personal history of nicotine dependence; Z66 Do not resuscitate; J18.9 Pneumonia, unspecified organism; M84.48XA Pathological fracture, other site, initial encounter for fracture; C34.91 Malignant neoplasm of unspecified part of right bronchus or lung; Z51.5 Encounter for palliative care; F32.9 Major depressive disorder, single episode, unspecified; C79.9 Secondary malignant neoplasm of unspecified site